=== PATIENT | male | born 1985 | race Caucasian/White ===

== ENCOUNTER 2024-06-17 07:42 | Observation (INO) | payer BC, SELFPAY ==
[2024-06-17] VITALS (9 sets, daily range): BP systolic 136–164; BP diastolic 74–99; PULSE 69–98; TEMP 36.3–36.9; O2SAT 93–98; BMI 34.5
--- NOTE | 2024-06-17 07:55 | CT_ITS ---
[address] [address] Patient Name: WILTON LR MRN: [id number] date: 1985 Sex: M Assigned Patient Location: ER Current Patient Location: Accession/Order Number: [id number] Exam Date: 06/17/2024 08:15 Report Date: 06/17/2024 09:47 At the request of: YANIRA DYER Procedure: CT angio UE RT EXAMINATION: CT angio UE RT HISTORY: swelling COMPARISON: No relevant comparison available. TECHNIQUE: After obtaining the patient's consent, CT images were obtained without and with non-ionic intravenous contrast material. Multi-planar reformatted/3-D images were created to optimize visualization of vascular anatomy. Dose reduction techniques were achieved by using automated exposure control and/or adjustment of mA and/or kV according to patient size and/or use of iterative reconstruction technique. FINDINGS: REGION: Right upper extremity ARTERIES: Normal appearance of the subclavian artery through distal radial and ulnar arteries. No significant obstruction or occlusion. OTHER: Mild lymphadenopathy and edema within right axilla. No appreciable abnormality of the musculature, subcutaneous fat, and bones of the right upper extremity. CT/CT angio UE RT IMPRESSION: 1. Normal CT angiography of the right upper extremity. No suspicious findings. 2. Mild right axilla lymphadenopathy/edema; nonspecific. Electronically authenticated by: HUNTER ROSE Date: 06/17/2024 09:47
--- NOTE | 2024-06-17 07:58 | ED_ITS ---
HPI HPI - General Adult General Chief complaint: Skin/Abscess/Foreign Body Stated complaint: LOCALIZED SWELLING Time Seen by Provider: 06/17/24 07:45 Source: patient Mode of arrival: walk-in History of Present Illness HPI narrative: Patient presents ED complaint of right arm swelling. He has noticed it on Saturday after his family reunion. He felt like maybe he got bit in his right wrist, there is a small adrien there. Over the past couple of days his arm has Become Progressively more swollen and tender. The swelling goes all the way up into the armpit and right chest wall on the lateral aspect. No fevers no nausea vomiting. He reports pain tingling and numbness. He does not know specifically if he was bit by something. He denies any injury to the area. No chest pain no shortness of breath.He said it started out as numb and tingly from the wrist to the elbow and outs progressed all the way up into the shoulder and lateral chest.Pain with palpation and pain with range of motion. Related Data Allergies Allergy/AdvReac Type Severity Reaction Status Date / Time No Known Drug Allergies Allergy Verified 06/17/24 07:50 Opioid HPI Opioid Management Most Recent Opioid Data: Last Pain Scale 4 06/17/24 09:30 Last ED Pain Assessment 06/17/24 09:30 Last MAR Pain Assessment 06/17/24 08:13 Review of Systems ROS Status of ROS 10 or more systems reviewed and unremark able except as noted in history and below Exam Narrative Exam Narrative: Time Seen: [] Vital Signs: [Per nurse's notes.] General: [Alert] Skin: [Warm, dry, no rash.] Head: [Normocephalic, atraumatic.] Neck: [Supple, trachea midline.] Eye: [Pupils are equal, round and reactive to light, extraocular movements are intact, normal conjunctiva.] Ears, nose, mouth and throat: oral mucosa moist. Cardiovascular: [Regular rate and rhythm, no murmur.] Respiratory: [Lungs are clear to auscultation, respirations are non-labored, breath sounds are equal.] Chest wall: [No tenderness, no deformity.] Gastrointestinal: [Soft, nontender, non distended, normal bowel sounds.] MSK: 5 out of 5 muscle strength x 4 extremities no calf pain or edema. Right arm exhibits diffuse swelling from hand up to shoulder including the armpit and Right lateral chest wall. Tenderness to palpation diffusely. No specific erythema but there is some dark coloration at the wrist which looks like may be bruising. Pain with range of motion and palpation in the entire arm and shoulder Lymphatics: [No lymphadenopathy.] Psychiatric: [Cooperative, appropriate mood & affect.] Neurological: [Alert and oriented to person, place, time, and situation, no focal neurological deficit observed.] Constitutional Vital Signs, click to edit/add: Last Vital Signs Temp 98.4 F 06/17/24 07:45 Pulse 74 06/17/24 10:56 Resp 18 06/17/24 10:56 BP 164/94 H 06/17/24 10:56 Pulse Ox 98 06/17/24 10:56 O2 Del Method Room Air 06/17/24 07:56 Course Vital Signs Vital signs: Vital Signs Temperature 98.4 F 06/17/24 07:45 Pulse Rate 71 06/17/24 07:45 Respiratory Rate 16 06/17/24 07:45 Blood Pressure 142/98 H 06/17/24 07:45 Pulse Oximetry 97 06/17/24 07:45 Oxygen Delivery Method Room Air 06/17/24 07:45 Temperature 98.4 F 06/17/24 07:45 Pulse Rate 74 06/17/24 10:56 Respiratory Rate 18 06/17/24 10:56 Blood Pressure 164/94 H 06/17/24 10:56 Pulse Oximetry 98 06/17/24 10:56 Oxygen Delivery Method Room Air 06/17/24 07:56 Medical Decision Making MDM Narrative Medical decision making narrative: Labs are nonacute. Imaging shows edema of the arm and axillary area with lymphadenopathy. I am thinking this is more of an allergic reaction type of issue but it is hard to completely rule out cellulitis or infection of the extremity. No arterial occlusion or compression. I spoke to Dr. Savage and he agrees with admission overnight IV antibiotics and steroids. Patient feels better slightly after the steroids here in ED but still has pain and swelling in the extremity diffusely. He is comfortable care plan for admission Differential Diagnosis Differential Diagnosis: Cellulitis, allergic reaction, arterial occlusion Lab Data Lab results reviewed: Yes I reviewed the patient's lab results Labs: Lab Results 06/17/24 Range/Units 08:05 WBC 7.2 (4.0-11.0) 10^3/uL RBC 4.77 (4.70-6.10) 10^6/uL Hgb 14.8 (14.0-18.0) g/dL Hct 42.8 (42.0-54.0) % MCV 89.7 (80.0-94.0) fL MCH 31.0 (25.9-34.0) pg MCHC 34.6 (29.9-35.2) g/dL RDW 12.1 (11.0-15.0) % Plt Count 217 (150-450) 10^3/uL MPV 10.2 (9.5-13.5) fL Neut % (Auto) 68.4 (43.0-75.0) % Lymph % (Auto) 22.7 (20.5-60.0) % [place] % (Auto) 6.2 (1.7-12.0) % Eos % (Auto) 1.8 (0.9-7.0) % Baso % (Auto) 0.6 (0.2-2.0) % Neut # (Auto) 4.9 (1.4-6.5) 10^3/uL Lymph # (Auto) 1.6 (1.2-3.8) 10^3/uL [place] # (Auto) 0.5 (0.3-0.8) 10^3/uL Eos # (Auto) 0.1 (0.0-0.7) 10^3/uL Baso # (Auto) 0.0 (0.0-0.1) 10^3/uL Abs Immat Gran (auto) 0.02 (0.00-0.03) 10^3/uL Imm/Tot Granulo (auto) 0.3 (0.0-0.5) % Sodium 140 (136-145) mmol/L Potassium 3.9 (3.5-5.1) mmol/L Chloride 102 (98-107) mmol/L Carbon Dioxide 29.0 (21.0-32.0) mmol/L Anion Gap 12.9 BUN 15.0 (7.0-18.0) mg/dL Creatinine 1.05 (0.70-1.30) mg/dL Est GFR ( Amer) >60 (>=60) Est GFR (Non-Af Amer) >60 (>=60) BUN/Creatinine Ratio 14.3 Glucose 125 H (74-106) mg/dL Lactate 1.4 (0.4-2.0) mmol/L Calcium 9.0 (8.5-10.1) mg/dL Total Bilirubin 0.7 (0.2-1.0) mg/dL AST 43 H (15-37) U/L ALT 85 H (16-63) U/L Alkaline Phosphatase 61 (46-116) U/L Total Protein 7.0 (6.4-8.2) g/dL Albumin 3.7 (3.4-5.0) g/dL Globulin 3.3 g/dL Albumin/Globulin Ratio 1.[address] scan - abdomen: Radiologist's impression: ITS Impressions Upper Extremity CTA 06/17/24 07:55 IMPRESSION: 1. Normal CT angiography of the right upper extremity. No suspicious findings. 2. Mild right axilla lymphadenopathy/edema; nonspecific. Electronically authenticated by: HUNTER ROSE Date: 06/17/2024 09:47 Discharge Plan Discharge Chief Complaint: Skin/Abscess/Foreign Body Clinical Impression: Cellulitis Patient Disposition: Admitted as Observation Time of Disposition Decision: 11:30 Condition: Fair Print Language: Mosotho Referrals: Physician,Non-Staff, [Physician] - 1 week
[2024-06-17] MEDS: KETOROLAC TROMETHAMINE 30 MG/ML VIAL IVP (08:13)
[2024-06-17] MEDS: DEXAMETHASONE SOD PHOS 10 MG/ML VIAL IV (08:13)
[2024-06-17 08:21] LABS: Basophils Percent Auto 0.6 % (0.2-2.0); Eosinophils Absolute Auto 0.1 10^3/uL (0.0-0.7); Eosinophils Percent Auto 1.8 % (0.9-7.0); Hematocrit 42.8 % (42.0-54.0); Hemoglobin 14.8 g/dL (14.0-18.0); Immature Granulocytes Abs Auto 0.02 10^3/uL (0.00-0.03); Immature Granulocytes Pct Auto 0.3 % (0.0-0.5); Lymphocytes Absolute Auto 1.6 10^3/uL (1.2-3.8); Lymphocytes Percent Auto 22.7 % (20.5-60.0); Mean Corpuscular HGB Conc 34.6 g/dL (29.9-35.2); Mean Corpuscular Volume 89.7 fL (80.0-94.0); Mean Platelet Volume 10.2 fL (9.5-13.5); Monocytes Absolute Auto 0.5 10^3/uL (0.3-0.8); Monocytes Percent Auto 6.2 % (1.7-12.0); Neutrophils Absolute Auto 4.9 10^3/uL (1.4-6.5); Neutrophils Percent Auto 68.4 % (43.0-75.0); Platelet Count 217 10^3/uL (150-450); Red Blood Count 4.77 10^6/uL (4.70-6.10); Red Cell Distribution Width 12.1 % (11.0-15.0); White Blood Count 7.2 10^3/uL (4.0-11.0)
[2024-06-17 08:36] LABS: Alanine Aminotransferase 85 U/L (16-63); Albumin Globulin Ratio 1.1; Albumin Level 3.7 g/dL (3.4-5.0); Alkaline Phosphatase 61 U/L (46-116); Anion Gap 12.9; Aspartate Amino Transferase 43 U/L (15-37); BUN Creatinine Ratio 14.3; Bilirubin Total 0.7 mg/dL (0.2-1.0); Chloride 102 mmol/L (98-107); Estimated GFR (African America >60 (>=60); Estimated GFR (Non-African Ame >60 (>=60); Globulin 3.3 g/dL; Glucose 125 mg/dL (74-106); Potassium 3.9 mmol/L (3.5-5.1); Sodium 140 mmol/L (136-145)
[2024-06-17 08:39] LABS: Lactate/Lactic Acid 1.4 mmol/L (0.4-2.0)
[2024-06-17] MEDS: VANCOMYCIN HCL 1,500 MG in 0.9 % SODIUM CHLORIDE 500 ML 250 MG IV ×2 (10:42→21:51)
--- NOTE | 2024-06-17 12:05 | P.HP_ITS ---
HPI H&P: HPI History of Present Illness Chief complaint: LOCALIZED SWELLING, R ARM CELLULITIS, EDEMA Narrative: Patient over the last several days has had increasing pain and swelling in his right upper extremity. Presented to the emergency room and found to have significant cellulitis with lymphangitis. Does have a break in the skin over his wrist with him some significant bruising and erythema. Consistent with likely spider bite. Workup in ER for CTA of the upper extremity and ultrasound the upper extremity did not show any arterial obstruction or venous thrombosis Opioid HPI Opioid Management Most Recent Pain and Opioid Data: Last Pain Scale 2 06/17/24 17:55 Last Pain Assessment 06/17/24 17:55 Last ED Pain Assessment 06/17/24 09:30 Last MAR Pain Assessment 06/17/24 08:13 Last ORT Total Score 1 06/17/24 13:09 Last ORT Risk Category Low Risk 06/17/24 13:09 Review of Systems ROS Status of ROS 10 or more systems reviewed and unremark able except as noted in history and below PFSH PFSH Social History Highest level of school completed/degree received: high school graduate Meds Home Medications and Allergies Home Medications ?Medication ?Instructions ?Recorded ?Confirmed ?Type omeprazole 40 mg capsule,delayed 40 mg PO .acb 06/17/24 06/17/24 History release Allergies Allergy/AdvReac Type Severity Reaction Status Date / Time No Known Drug Allergies Allergy Verified 06/17/24 07:50 Exam Constitutional Vital Signs, click to edit/add: Last Vital Signs Temp 98.4 F 06/17/24 07:45 Pulse 74 06/17/24 10:56 Resp 18 06/17/24 10:56 BP 164/94 H 06/17/24 10:56 Pulse Ox 98 06/17/24 10:56 O2 Del Method Room Air 06/17/24 07:56 Documenting provider has reviewed patient's vital signs: yes Common normals: no apparent distress Lymph Lymphatic: no lymphadenopathy noted Chest Common normals: inspection of chest normal Respiratory Common normals: normal respiratory effort and no retractions Cardio Common normals: regular rate and regular rhythm GI Common normals: Normal to inspection, nondistended, normoactive bowel sounds present Extremity Common normals: abnormal to inspection (Moderate swelling of right upper extremity with swelling up into the axilla) Other: Rubor, dolor, calor over anterior wrist right-sided Results Labs Labs: Short CBC 06/17/24 Range/Units 08:05 WBC 7.2 (4.0-11.0) 10^3/uL Hgb 14.8 (14.0-18.0) g/dL Hct 42.8 (42.0-54.0) % Plt Count 217 (150-450) 10^3/uL BMP 06/17/24 08:05 Sodium 140 Potassium 3.9 Chloride 102 Carbon Dioxide 29.0 BUN 15.0 Creatinine 1.05 Glucose 125 H Calcium 9.0 Liver Function 06/17/24 Range/Units 08:05 Total Bilirubin 0.7 (0.2-1.0) mg/dL AST 43 H (15-37) U/L ALT 85 H (16-63) U/L Alkaline Phosphatase 61 (46-116) U/L Albumin 3.7 (3.4-5.0) g/dL Assessment and Plan Assessment and Plan (1) Cellulitis: Plan Admission findings: Pain, swelling right upper extremity and area of insect bite with swelling up into the axilla. Consistent with cellulitis progressing to lymphangitis. With the speed with which this developed concern for continued progression with oral antibiotics will start patient on IV antibiotics Cellulitis right upper extremity-cellulitis progressed fairly rapidly, IV antibiotics. Blood cultures pending. Repeat labs in AM. Mild elevation in LFTs-repeat in a.m. GERD-continue with home medications Admission status: Patient admitted with cellulitis. Due to the speed with which is progressed, and blood cultures pending medically necessary treatment likely will span 2 midnights. Inpatient status.
[2024-06-17 12:37] LABS: Erythrocyte Sedimentation Rate 27 mm/hr (<=15)
[2024-06-17 13:15] LABS: C Reactive Protein 1.44 mg/dL (<=0.50)
--- NOTE | 2024-06-17 13:51 | US_ITS ---
[facility] [id number] Patient Name: WILTON LR MRN: [id number] date: 1985 Sex: M Assigned Patient Location: [place] Current Patient Location: [place] Accession/Order Number: [id number] Exam Date: 06/17/2024 15:55 Report Date: 06/17/2024 17:06 At the request of: JOSEPH SIMS Procedure: US venous doppler UE RT EXAM: US venous doppler UE RT HISTORY: edema. COMPARISON: None available. TECHNIQUE: Velazquez scale, Color Doppler, and spectral analysis were utilized to evaluate the right subclavian, axillary, brachial, cephalic, basilic, radial, and ulnar veins. Compression ultrasound was performed. FINDINGS: The noted vessels demonstrate normal color flow and spectral pattern with appropriate compression. No evidence of a deep venous thrombosis is seen. US/US venous doppler UE RT IMPRESSION: No sonographic evidence of deep venous thrombosis of the vessels imaged in the right upper extremity. Electronically authenticated by: PEGGY POLK Date: 06/17/2024 17:06
[2024-06-17] MEDS: PIPERACILLIN SODIUM/TAZOBACTAM 3.375 GM in 0.9 % SODIUM CHLORIDE 50 ML IV ×2 (14:30→21:06)
[2024-06-17] MEDS: 0.9 % SODIUM CHLORIDE 250 ML 10 ML IV (14:30)
[2024-06-18 04:00] VITALS: BP 150/90; PULSE 89; TEMP 36.6; O2SAT 92
[2024-06-18] MEDS: OMEPRAZOLE 40 MG CAPSULE.DR PO (05:37)
[2024-06-18] MEDS: PIPERACILLIN SODIUM/TAZOBACTAM 3.375 GM in 0.9 % SODIUM CHLORIDE 50 ML IV (05:37)
[2024-06-18 05:46] LABS: Basophils Percent Auto 0.2 % (0.2-2.0); Hematocrit 40.8 % (42.0-54.0); Hemoglobin 14.2 g/dL (14.0-18.0); Immature Granulocytes Abs Auto 0.04 10^3/uL (0.00-0.03); Immature Granulocytes Pct Auto 0.3 % (0.0-0.5); Lymphocytes Absolute Auto 1.5 10^3/uL (1.2-3.8); Lymphocytes Percent Auto 12.1 % (20.5-60.0); Mean Corpuscular HGB Conc 34.8 g/dL (29.9-35.2); Mean Corpuscular Hemoglobin 31.5 pg (25.9-34.0); Mean Corpuscular Volume 90.5 fL (80.0-94.0); Mean Platelet Volume 10.1 fL (9.5-13.5); Monocytes Absolute Auto 0.9 10^3/uL (0.3-0.8); Monocytes Percent Auto 7.3 % (1.7-12.0); Neutrophils Absolute Auto 9.9 10^3/uL (1.4-6.5); Neutrophils Percent Auto 80.1 % (43.0-75.0); Platelet Count 251 10^3/uL (150-450); Red Blood Count 4.51 10^6/uL (4.70-6.10); Red Cell Distribution Width 12.3 % (11.0-15.0); White Blood Count 12.4 10^3/uL (4.0-11.0)
[2024-06-18 05:52] LABS: Erythrocyte Sedimentation Rate 19 mm/hr (<=15)
[2024-06-18 05:59] LABS: Anion Gap 14.1; BUN Creatinine Ratio 13.9; C Reactive Protein 1.23 mg/dL (<=0.50); Calcium 8.7 mg/dL (8.5-10.1); Carbon Dioxide 24.9 mmol/L (21.0-32.0); Chloride 102 mmol/L (98-107); Estimated GFR (African America >60 (>=60); Estimated GFR (Non-African Ame >60 (>=60); Glucose 159 mg/dL (74-106); Sodium 137 mmol/L (136-145)
[2024-06-18 06:56] LABS: Alanine Aminotransferase 67 U/L (16-63); Albumin Level 3.3 g/dL (3.4-5.0); Alkaline Phosphatase 64 U/L (46-116); Aspartate Amino Transferase 21 U/L (15-37); Bilirubin Direct 0.1 mg/dL (0.0-0.2); Bilirubin Total 0.3 mg/dL (0.2-1.0); Globulin 3.2 g/dL; Total Protein 6.5 g/dL (6.4-8.2)
[2024-06-18 07:37] VITALS: BP 134/90; PULSE 70; TEMP 36.6; O2SAT 95
--- NOTE | 2024-06-18 07:51 | CM.NOTE ---
Rounds made with Dr. Savage, pt will discharge to home today. No discharge needs identified.
[2024-06-18] MEDS: VANCOMYCIN HCL 1,500 MG in 0.9 % SODIUM CHLORIDE 500 ML 250 MG IV (09:28)
--- NOTE | 2024-06-18 10:03 | P.DS_ITS ---
DS: Providers Provider Date of admission: 06/17/24 14:37 Primary care physician: SERG ZAYAS DS: Diagnosis Discharge Diagnosis (1) Cellulitis: Plan Admission findings: Pain, swelling right upper extremity and area of insect bite with swelling up into the axilla. Consistent with cellulitis progressing to lymphangitis. With the speed with which this developed concern for continued progression with oral antibiotics will start patient on IV antibiotics Cellulitis right upper extremity-cellulitis progressed fairly rapidly, improving at the time of discharge Mild elevation in LFTs-improving at the time of discharge GERD-continue with home medications Admission status: Patient admitted with cellulitis. Due to the speed with which is progressed, and blood cultures pending medically necessary treatment likely will span 2 midnights. Inpatient status. DS: Summary Hospital Course Hospital Course: Patient was seen and evaluated with increasing pain and swelling to his right upper extremity after sustaining a bite on his right wrist. CTA and ultrasound showed no circulation compromise. No thrombosis. Patient was admitted for IV antibiotics. His white blood cell count is higher but his arm is much improved today. CRP is also improved today. Liver function test elevated on admission improved today as well. Patient overall feels much better and he can move his full fingers now and has an improved contract recruiter strength. At this point with the improvement faster than expected, will discharge patient to home in improving condition. Medications to this. Follow-up with PCP within the next week. Time Spent with Patient Time attestation: Total time spent providing and/or coordinating discharge services: Exam Constitutional Vital Signs, click to edit/add: Last Vital Signs Temp 97.8 F 06/18/24 07:37 Pulse 70 06/18/24 07:37 Resp 14 06/18/24 07:37 BP 134/90 06/18/24 07:37 Pulse Ox 95 06/18/24 07:37 O2 Del Method Room Air 06/18/24 07:37 Documenting provider has reviewed patient's vital signs: yes Common normals: no apparent distress Lymph Lymphatic: no lymphadenopathy noted Chest Common normals: inspection of chest normal Respiratory Common normals: normal respiratory effort and no retractions Cardio Common normals: regular rate and regular rhythm GI Common normals: Normal to inspection, nondistended, normoactive bowel sounds present Extremity Common normals: abnormal to inspection (Mild swelling of the right upper extremity much improved from admission) Other: Rubor, dolor, calor over anterior wrist right-sided DS: Data Data Completed and Pending Labs on day of discharge: Labs from last 24 hours 06/18/24 06/17/24 05:20 08:05 WBC 12.4 H RBC 4.51 L Hgb 14.2 Hct 40.8 L MCV 90.5 MCH 31.5 MCHC 34.8 RDW 12.3 Plt Count 251 MPV 10.1 Neut % (Auto) 80.1 H Lymph % (Auto) 12.1 L [place] % (Auto) 7.3 Eos % (Auto) 0.0 L Baso % (Auto) 0.2 Neut # (Auto) 9.9 H Lymph # (Auto) 1.5 [place] # (Auto) 0.9 H Eos # (Auto) 0.0 Baso # (Auto) 0.0 Abs Immat Gran (auto) 0.04 H Imm/Tot Granulo (auto) 0.3 ESR 19 H 27 H Sodium 137 Potassium 4.0 Chloride 102 Carbon Dioxide 24.9 Anion Gap 14.1 BUN 14.0 Creatinine 1.01 Est GFR ( Amer) >60 Est GFR (Non-Af Amer) >60 BUN/Creatinine Ratio 13.9 Glucose 159 H Calcium 8.7 Total Bilirubin 0.3 Direct Bilirubin 0.1 AST 21 ALT 67 H Alkaline Phosphatase 64 C-Reactive Protein 1.23 H 1.44 H Total Protein 6.5 Albumin 3.3 L Globulin 3.2 Albumin/Globulin Ratio 1.0 Discharge Plan Discharge Disposition: Home, Self-Care Condition: Fair Discharge Medications: New amoxicillin-pot clavulanate 875-125 mg tablet 1 tab PO Q12H Qty: 20 0RF doxycycline monohydrate 100 mg capsule 100 mg PO BID 10 Days Qty: 20 0RF Continued omeprazole 40 mg capsule,delayed release(DR/EC) 40 mg PO .acb Print Language: Icelandic Patient Instructions: Doxycycline (By mouth), Amoxicillin/Clavulanate Potassium (By mouth) Forms: Portal Instructions Follow Up Appointments: Dr. Zayas's freelance director will contact the patient to schedule a hospital stay follow up appt. [phone]
[2024-06-18 11:10] VITALS: O2SAT 96
[2024-06-18 11:39] VITALS: BP 146/90; PULSE 76; TEMP 37.2; O2SAT 95
--- NOTE | 2024-06-19 13:54 | CM.DCFOLLOWU ---
Person spoke with:patient How are you feeling?well How is your pain?none Did you understand your discharge instructions?yes Do you have any questions about your discharge instructions?no Were you given any prescriptions at discharge?yes Were you able to get your prescriptions filled?yes Do you understand how to take your medications as ordered?yes Do you have any questions about your follow up appointment and do you plan to keep your follow up appointment?no questions, his PCP office called him and follow up was made Is there anything else that you would like to discuss? no Questions/Comments/Concerns/Other: none
== END 2024-06-18 11:58 | disposition home or self-care (01) ==
LOC: ER 11:30 → MS 13:06
PROVIDERS: Admitting Provider Family Medicine; Emergency Provider Emergency Medicine; Family Provider Family Medicine; PCP Family Medicine; Visit Provider Family Medicine
DX: L03.113 Cellulitis of right upper limb (principal); S40.861A Insect bite (nonvenomous) of right upper arm, initial encounter; W57.XXXA Bitten or stung by nonvenomous insect and other nonvenomous arthropods, initial encounter; R79.89 Other specified abnormal findings of blood chemistry; K21.9 Gastro-esophageal reflux disease without esophagitis; M79.89 Other specified soft tissue disorders
CPT/HCPCS: 36415; 73206; 80048; 80053; 80076; 83605; 85025; 85652; 86140; 87040; 93971; 94761; 96365; 96366; 96367; 96368; 96375; 99285; G0378; J1100; J1885; J2543; J3370; Q9967

== ENCOUNTER 2024-12-05 13:06 | Emergency (ER) | payer BC, SELFPAY ==
[2024-12-05 13:10] VITALS: BP 158/100; PULSE 103; TEMP 37.1; O2SAT 96; BMI 34.4
--- OUTSIDE RECORDS SUMMARY | 2024-12-05 13:11 | XMS_ITS | CCD ---
Author Organization [facility] Care Team Providers Care Automotive Sales Specialist Name Role Phone STRUS, ISAIAS Unavailable Unavailable STRUS, ISAIAS Unavailable Unavailable MISC, DOCTOR Unavailable Unavailable STRUS, ISAIAS Unavailable Unavailable TIMMIS, TRINA Unavailable Unavailable TIMMIS, TRINA Unavailable Unavailable TIMMIS, TRINA Unavailable Unavailable JESSICA COOK V Unavailable Unavailable KAPDOV PATEL Unavailable Unavailable TIMMIS, TRINA Unavailable Unavailable TIMMIS, TRINA Unavailable Unavailable TIMMIS, TRINA Unavailable Unavailable DOV GARCIA Unavailable Unavailable TIMMIS, TRINA Unavailable Unavailable TIMMIS, TRINA Unavailable Unavailable TIMMIS, TRINA Unavailable Unavailable DOV GARCIA Unavailable Unavailable Dov GARCIA Primary Care Physician Jose KONG Attending Unavailable Sherrell BAZAN Attending Unavailable Dov GARCIA Attending Unavailable Dov GARCIA Attending Unavailable Allergies Allergy Classification Reported Allergen(s) Allergy Type Date of Onset Reaction(s) Facility (1 source) omeprazole Drug Allergy RASH [facility] Repository Medications Current Medications Medication Drug Class(es) Dates Sig (Normalized) Sig (Original) fluticasone / vilanterol (2 sources) Corticosteroid, beta2-Adrenergic Agonist Start: 10-10-2023 take 1 puff(s) by inhalation once daily Breo Ellipta 100 mcg-25 mcg inhalation powder 1 puff(s), Inhalation, Daily, 28 blister(s), Refill(s) 2, 30 dose unit, [facility]/pharmacy #[id number], 178, cm, 07/12/22 13:55:00 EDT, Height/Length Dosing, 113.9, kg, 07/12/22 13:55:00 EDT, Weight Dosing Start Date: 10/10/23 Status: Ordered ibuprofen 800 mg oral tablet (2 sources) Nonsteroidal Anti-inflammatory Drug Start: 10-28-2023 take 1 tablet by mouth three times daily ibuprofen 800 mg Tab 800 mg = 1 tab(s), Oral, TID, # 100 tab(s), Refills(s) 3, Pharmacy: [facility]/pharmacy #[id number], 178, cm, 10/28/23 8:48:00 EST, Height/Length Dosing, 113.9, kg, 10/28/23 8:48:00 EST, Weight Dosing Start Date: 10/28/23 Status: Ordered methylPREDNISolone 4 mg oral tablet (1 source) Corticosteroid Start: 01-13-2024 Medrol Dosepack 4 mg Tab 4 mg = 1 packet(s), Oral, As Directed, as directed on package labeling, # 1 packet(s), Refills(s) 0, Pharmacy: [facility]/pharmacy #[id number], 178, cm, 10/28/23 8:48:00 EST, Height/Length Dosing, 113.9, kg, 10/28/23 8:48:00 EST, Weight Dosing Start Date: 01/13/24 Status: Ordered omeprazole 40 mg delayed release oral capsule (3 sources) Proton Pump Inhibitor Start: 10-30-2023 take 1 capsule by mouth once daily omeprazole 40 mg Cap-DR 40 mg = 1 cap(s), Oral, Daily, # 90 cap(s), Refills(s) 3, Pharmacy: [facility]/pharmacy #[id number], 178, cm, 10/28/23 8:48:00 EST, Height/Length Dosing, 113.9, kg, 10/28/23 8:48:00 EST, Weight Dosing Start Date: 10/30/23 Status: Ordered Start: 07-19-2022 take 1 capsule by [facility] once daily omeprazole 40 mg Cap-DR 40 mg = 1 cap(s), Oral, Daily, # 90 cap(s), Refills(s) 3, Pharmacy: [facility]/pharmacy #[id number], 178, cm, 07/12/22 13:55:00 EDT, Height/Length Dosing, 113.9, kg, 07/12/22 13:55:00 EDT, Weight Dosing Start Date: 07/19/22 Status: Ordered Start: 07-12-2022 take 1 capsule by [facility] once daily omeprazole 40 mg Cap-DR 40 mg = 1 cap(s), Oral, Daily, # 90 cap(s), Refills(s) 3, [id number], 178, cm, 07/12/22 13:55:00 EDT, Height/Length Dosing, 113.9, kg, 07/12/22 13:55:00 EDT, Weight Dosing Start Date: 07/12/22 Status: Ordered Completed/Discontinued Medications Medication Drug Class(es) Dates Sig (Normalized) Sig (Original) albuterol 0.83 mg/ml inhalation solution (3 sources) beta2-Adrenergic Agonist Start: 01-09-2021 take 100 doses by inhalation every four hours albuterol 0.083% Inh Letty 3 mL 0.083% - 3mL dosing units, Inhalation, q4hr Wheezing & cough, 100 EA, Refill(s) 5, [facility]/pharmacy #[id number], 175, cm, 01/07/21 16:45:00 EDT, Height/Length Dosing, 110, kg, 01/07/21 16:45:00 EDT, Weight Dosing Start Date: 01/09/21 Status: Ordered Albuterol (Eqv-ProAir HFA) 90 mcg/inh inhalation aerosol (2 sources) Start: 10-28-2023 take 1 dose by inhalation every four hours Albuterol (Eqv-ProAir HFA) 90 mcg/inh inhalation aerosol 2 puff(s), Inhalation, q4hr, 1 EA, Refill(s) 3, [facility]/pharmacy #[id number], 178, cm, 10/28/23 8:48:00 EST, Height/Length Dosing, 113.9, kg, 10/28/23 8:48:00 EST, Weight Dosing Start Date: 10/28/23 Status: Ordered Problems Active Problems Problem Classification Problem Date Documented Date Episodic/Chronic Asthma (5 sources) Mild intermittent asthma; Translations: [Asthma] Onset: 01-14-2024 01-23-2021 Chronic Esophageal disorders (12 sources) Gastro-esophageal reflux disease without esophagitis; Translations: [Gastroesophageal reflux disease without esophagitis] Onset: 11-15-2017 Chronic Essential hypertension (1 source) Essential (primary) hypertension; Translations: [ESSENTIAL PRIMARY HYPERTENSION] Onset: 11-19-2017 Chronic Osteoarthritis (3 sources) Localized, primary osteoarthritis of the shoulder region; Translations: [Primary osteoarthritis, right shoulder] Onset: 10-28-2023 Chronic Other liver diseases (2 sources) Enzyme level - finding; Translations: [Abnormal levels of other serum enzymes] Onset: 07-12-2022 Episodic Other liver diseases (3 sources) Elevated liver enzymes level 01-23-2021 Episodic Other lower respiratory disease (4 sources) Dyspnea; Translations: [Other forms of dyspnea] Onset: 07-12-2022 Episodic Other lower respiratory disease (4 sources) H/O: respiratory disease; Translations: [Personal history of other diseases of the respiratory system] Onset: 07-12-2022 Episodic Other lower respiratory disease (2 sources) Hypoxemia 01-12-2021 Episodic Other lower respiratory disease (3 sources) Orthopnea 07-12-2022 Episodic Other lower respiratory disease (3 sources) Snoring 06-25-2019 Episodic Other lower respiratory disease (3 sources) Wheezing; Translations: [Wheezing] Onset: 10-28-2023 Episodic Other non-traumatic joint disorders (1 source) Derangement of right shoulder joint 01-14-2024 Chronic Other non-traumatic joint disorders (1 source) Joint derangement; Translations: [Joint derangement, unspecified] Onset: 01-14-2024 Episodic Other nutritional; endocrine; and metabolic disorders (6 sources) Obesity; Translations: [Other obesity] Onset: 07-12-2022 Chronic Other nutritional; endocrine; and metabolic disorders (3 sources) Obese class II; Translations: [Body mass index (BMI) 35.0-35.9, adult] Onset: 07-12-2022 Chronic Other nutritional; endocrine; and metabolic disorders (3 sources) Body mass index 30+ - obesity 01-23-2021 Chronic Other screening for suspected conditions (not mental disorders or infectious disease) (1 source) Blood chemistry abnormal; Translations: [Other specified abnormal findings of blood chemistry] Onset: 07-12-2022 Episodic Other upper respiratory infections (4 sources) Chronic sinusitis, unspecified; Translations: [Chronic maxillary sinusitis] Onset: 05-23-2018 Chronic Residual codes; unclassified (6 sources) Obstructive sleep apnea syndrome Resolved: 06-25-2019 06-25-2019 Chronic Respiratory failure; insufficiency; arrest (adult) (3 sources) Acute hypoxemic respiratory failure 07-12-2022 Episodic Unclassified (4 sources) Obstructive sleep apnea (adult) (pediatric); Translations: [OBSTRUCTIVE SLEEP APNEA] Onset: 07-02-2018 Chronic Unclassified (4 sources) History of SARS-CoV-2; Translations: [Personal history of COVID-19] Onset: 07-12-2022 Unclassified (3 sources) Drug therapy finding 07-13-2020 Unclassified (10 sources) Patient encounter status 01-09-2021 Unclassified (3 sources) Protein level - finding 07-12-2022 Unclassified (2 sources) 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 07-25-2022 Viral infection (3 sources) Viral disease; Translations: [Viral infection, unspecified] Onset: 10-28-2023 Episodic Past or Other Problems Problem Classification Problem Date Documented Da te Episodic/Chronic Pneumonia (except that caused by tuberculosis or sexually transmitted disease) (3 sources) Pneumonia (except that caused by tuberculosis or sexually transmitted disease) 07-12-2022 Viral infection (4 sources) Disease caused by 2019-nCoV; Translations: [COVID-19] Onset: 10-28-2023 01-23-2021 Results Test Name Value Interpretation Reference Range Facility Registrationon 02-10-2024 Registration [id number] Normal [facility] Ambulatory Visit Summaryon 0 01-14-2024 Ambulatory Visit Summary WILTON ROMAN :1985 Visit Date:01/14/2024 Ambulatory Visit Instructions Your Diagnosis Derangement of right shoulder joint BMI 36.0-36.9,adult Other obesity Well adult health check Your Care Team Attending Physician - Dov GARCIA DO, FAAFP Primary Care Physician - Dov GARCIA DO, FAAFP This Is Your Medications List Contact prescribing physician if questions or concerns albuterol (Albuterol (Eqv-ProAir HFA) 90 mcg/inh inhalation aerosol) albuterol (albuterol 0.083% Inh Letty 3 mL) fluticasone-vilanterol (Breo Ellipta 100 mcg-25 mcg inhalation powder) ibuprofen (ibuprofen 800 mg Tab) methylPREDNISolone (Medrol Dosepack 4 mg Tab) omeprazole (omeprazole 40 mg Cap-DR) Procedures Performed right shoulder labral repair - 2004. Discharge Vitals Temperature (Oral) 36.7 ?C Heart Rate (Peripheral) 82 Respiratory Rate 18 Blood Pressure 120/80 Height 178 cm Height 70 in Weight 114.8 kg Weight 252.56 lb BMI 36.23 What to do next Someone Will Contact You Regarding These Appointments [facility] External Ambulatory Referral, Orthopaedics, 01/14/24 11:14:00 EDT, Derangement of right shoulder joint Medications What How Much When Why Instructions Unchanged albuterol (Albuterol (Eqv-ProAir HFA) 90 mcg/ inh inhalation aerosol) 2 Puffs Inhalation Every 4 hours Contact prescribing physician if questions or concerns Unchanged albuterol (albuterol 0.083% Inh Letty 3 mL) 0.083% - 3mL dosing units Inhalation Every 4 hours as needed for Wheezing & cough COVID-19 COVID-19 Contact prescribing physician if questions or concerns Unchanged fluticasone-vilanterol (Breo Ellipta 100 mcg-25 mcg inhalation powder) 1 Puffs Inhalation Every day COVID-19 Screening for diabetes mellitus Screening for lipid disorders Well adult exam Mild asthma exacerbation Post-COVID chronic dyspnea 30 dose unit Contact prescribing physician if questions or concerns Unchanged ibuprofen (ibuprofen 800 mg Tab) 1 Tablets By Mouth 3 times a day Osteoarthritis of right shoulder Contact prescribing physician if questions or concerns Unchanged methylPREDNISolone (Medrol Dosepack 4 mg Tab) 1 Packets By Mouth As Directed as directed on package labeling Contact prescribing physician if questions or concerns Unchanged omeprazole (omeprazole 40 mg Cap-DR) 1 Capsules By Mouth Every day Contact prescribing physician if questions or concerns Allergies No Known Allergies Problems Ongoing - Any problem that you are currently receiving treatment for. Derangement of right shoulder joint Dyspnea Elevated ferritin Elevated liver enzymes GERD (gastroesophageal reflux disease) H/O respiratory failure High risk medication use History of COVID-19 Mild asthma exacerbation Osteoarthritis of right shoulder Post-COVID chronic dyspnea Screening for diabetes mellitus Screening for lipid disorders Snoring Viral illness Well adult exam Well adult health check Wheezing Historical - Any problem that you are no longer receiving treatment for. Acute respiratory failure with hypoxemia Adult BMI 36.0-36.9 kg/sq m Class 2 severe obesity with serious comorbidity and body mass index (BMI) of 36.0 to 36.9 in adult COVID-19 GERD (gastroesophageal reflux disease) Orthopnea KIRSTIE (obstructive sleep apnea) KIRSTIE on CPAP Pneumonia due to COVID-19 virus Patient Survey You may receive a survey via text or e-mail asking about your office visit. Please share your experience with us by completing your survey. We appreciate your feedback and thank you for choosing us for your care. Elijah Rosas [facility] Medicine Office/Clini c Noteon 01-14-2024 Family Medicine Office/Clinic Note Chief Complaint Patient here for right shoulder pain History of Present Illness R shoulder surgery 2004 Dr Henson hurt it wrestling. He said could have surgery q 5 years way his joint is configured, I cannot understand why he said that. Approximately 3 weeks ago I started throwing baseball with my son and my arm and shoulder started to kill me. The pain went from the right shoulder all the way down to into the right lateral arm and sometimes into the forearm. Minimal in the computer and it hangs it kills me. I cannot get my arm up to the side anymore. Denies any weakness in the triceps or the bicep or with hand grasp but it just hurts so much more likely giveaway weakness. I hurt my shoulder back in high school wrestling. Motrin [id number] as directed sometimes helps, I am having trouble sleeping at night secondary to the pain and I do not want any narcotics I do not like the way they make me feel. Only time I had elevated liver enzymes was when I had COVID, they returned to normal. (I cannot find documentation where his enzymes returned to normal) Asthma under good control I have not needed to use my inhalers Here for follow up Have you had any ER visits or any hospitalizations since last visit? no Are you compliant with your medications and no difficulty affording your medications? yes Do you have side effects from the medication? no Are you compliant with your diet? yes Do you exercise? yes Do you have any of the following symptoms? Chest pain? no Palpitations? no ACEVES/SOB? no Orthopnea? no PND? no Edema? no Have you had any recent cardiopulmonary testing? no Review of Systems PHQ Score Initial Depression Screen Score: 0 SCORE ROS - Provider Constitutional: no fever, no chills, no sweats, no weakness. Skin: no Jaundice, no rash, no lesions, no petechiae. ENMT: no ear pain, no sore throat, no congestion, no hoarseness. Respiratory: no shortness of breath, no cough, no orthopnea, no wheezing. Cardiovascular: no chest pain, no palpitations, no edema. Gastrointestinal: no nausea, no vomiting, no diarrhea, no GI bleeding.no constipationnoheartburn Genitourinary: no dysuria, no hematuria, no discharge, no pain.nofreq/urgency Musculoskeletal: no back pain, no trauma.yesjoint pain Neurologic: no headache, no dizziness, no numbness, no weakness. Psychiatric: no sleeping problems, no irritability, no mood swings/depression. Heme/Lymph: no bleeding tendency, no bruising tendency, no petechiae, no swollen lymph nodes no Allergy/Imunology no seasonal allergies, no food allergies, no recurrent infections, no impaired immunity. Additional ROS info: Except as noted in the above Review of Systems and in the History of Present Illness all other systems have been reviewed and are negative or noncontributory. Physical Exam Vitals & Measurements T: 36.7 ?C(Oral) HR: 82(Peripheral) RR: 18 BP: 120/80 SpO2: 98% HT: 70 in HT: 178 cm WT: 114.8 kg WT: 252.56 lb BMI: 36.23 General: Well developed, well nourished, in no acute distress Mouth: Mucous membranes moist. Normal oropharynx, and posterior pharynx without lesions or exudates. Tongue normal Neck: Neck supple. No masses or palpable cervical nodes. Trachea midline. Thyroid without nodules, masses, tenderness, or enlargement Lungs: Normal respiratory effort and clear to auscultation Cardio: Regular rate and rhythm, normal S1 and S2, no murmur, no rub Abdomen: Soft, non-distended, non-tender. no G/R/S/Masses Musculoskeletal: Crepitus right shoulder greater than left. Patient can only raise right arm to approximately 70 degrees, he can will raise his left arm to 145 degrees. Bilateral hand grasp 5/5. Biceps and triceps are 5/5 . There is no increased warmth warmth nor effusion of the shoulder. Patient with significant pain with abduction of right arm greater than 70 degrees Extremity: No clubbing, cyanosis, edema, or deformity, with normal ROM in both upper and lower bilateral extremities Neurologic: Grossly normal Skin: No rashes, ulcerations, or suspicious lesions Mental Status: Alert and oriented x3. Normal mood and affect Assessment/Plan 1. Derangement of right shoulder joint (M24.9: Joint derangement, unspecified) Toradol 30 mg IM. No Motrin for 24 hours then may resume. Referral to [facility], he will stop to see if he get an appointment immediately after our appointment here today. Ordered: [facility] External Ambulatory Referral 2. BMI 36.0-36.9,adult (Z68.36: Body mass index [BMI] 36.0-36.9, adult) The standard range for ages 18 and older is >=18.5 and < 25 kg/m2. Your BMI today was above this range, this falls in the overweight to obese category and there are medical benefits to weight loss. We can offer counselling, referral, and/or medical support in addressing this problem. Your BMI and weight management will be followed at subsequent visits. 3. Other obesity (E66.8: Other obesity) Diet and exercise BMI goal of 25 4. Well sean (more content not included)... Normal [facility] Comment on above: Result Comment: Elec tronically Signed By: JOSE MELGAR FAAFP, Dov Reeder\.br\Date and Time Signed: 01/14/24 11:50 EDT Patient Educationon 01-14-20 Patient Education Orthopedics Shoulder Exercises Ask your health care provider which exercises are safe for you. Do exercises exactly as told by your health care provider and adjust them as directed. It is normal to feel mild stretching, pulling, tightness, or discomfort as you do these exercises. Stop right away if you feel sudden pain or your pain gets worse. Do not begin these exercises until told by your health care provider. Stretching exercises External rotation and abduction This exercise is sometimes called corner stretch. The exercise rotates your arm outward (external rotation) and moves your arm out from your body (abduction). 1. manager internet a doorway with one of your feet slightly in front of the other. This is called a staggered stance. If you cannot reach your forearms to the door frame, stand facing a corner of a room. 2. Choose one of the following positions as told by your health care provider: ? Place your hands and forearms on the door frame above your head. ? Place your hands and forearms on the door frame at the height of your head. ? Place your hands on the door frame at the height of your elbows. 3. Slowly move your weight onto your front foot until you feel a stretch across your chest and in the front of your shoulders. Keep your head and chest upright and keep your abdominal muscles tight. 4. Hold for seconds. 5. To release the stretch, shift your weight to your back foot. Repeat times. Complete this exercise times a day. Extension, standing 1. Stand and hold a broomstick, a cane, or a similar object behind your back. ? Your hands should be a little wider than shoulder-width apart. ? Your palms should face away from your back. 2. Keeping your elbows straight and your shoulder muscles relaxed, move the stick away from your body until you feel a stretch in your shoulders (extension). ? Avoid shrugging your shoulders while you move the stick. Keep your shoulder blades tucked down toward the middle of your back. 3. Hold for seconds. 4. Slowly return to the starting position. Repeat times. Complete this exercise times a day. [id number] exercises Pendulum 1. Stand near a wall or a surface that you can hold onto for balance. 2. Bend at the waist and let your left / right arm hang straight down. Use your other arm to support you. Keep your back straight and do not lock your knees. 3. Relax your left / right arm and shoulder muscles, and move your hips and your trunk so your left / right arm swings freely. Your arm should swing because of the motion of your body, not because you are using your arm or shoulder muscles. 4. Keep moving your hips and trunk so your arm swings in the following directions, as told by your health care provider: ? Side to side. ? Forward and backward. ? In clockwise and counterclockwise circles. 5. Continue each motion for seconds, or for as long as told by your health care provider. 6. Slowly return to the starting position. Repeat times. Complete this exercise times a day. Shoulder flexion, standing 1. Stand and hold a broomstick, a cane, or a similar object. Place your hands a little more than shoulder-width apart on the object. Your left / right hand should be palm-up, and your other hand should be palm-down. 2. Keep your elbow straight and your shoulder muscles relaxed. Push the stick up with your healthy arm to raise your left / right arm in front of your body, and then over your head until you feel a stretch in your shoulder (flexion). ? Avoid shrugging your shoulder while you raise your arm. Keep your shoulder blade tucked down toward the middle of your back. 3. Hold for seconds. 4. Slowly return to the starting position. Repeat times. Complete this exercise times a day. Shoulder abduction, standing 1. Stand and hold a broomstick, a cane, or a similar object. Place your hands a little more than shoulder-width apart on the object. Your left / right hand should be palm-up, and your other hand should be palm-down. 2. Keep your elbow straight and your shoulder muscles relaxed. Push the object across your body toward your left / right side. Raise your left / right arm to the side of your body (abduction) until you feel a stretch in your shoulder. ? Do not raise your arm above shoulder height unless your health care provider tells you to do that. ? If directed, raise your arm over your head. ? Avoid shrugging your shoulder while you raise your arm. Keep your shoulder blade tucked down toward the middle of your back. 3. Hold for seconds. 4. Slowly return to the starting position. Repeat times. Complete this exercise times a day. In (more content not included)... Normal [facility] Physician Referralon 024 Physician Referral [id number] Normal [facility] Family Medicine Office/Clini c Noteon 10-28-2023 Family Medicine Office/Clinic Note Chief Complaint Patient here for yearly check up. States he had Covid back in Sep. History of Present Illness Much better. Here for follow up Have you had any ER visits or any hospitalizations since last visit? no Are you compliant with your medications and no difficulty affording your medications? yes Do you have side effects from the medication? no Are you compliant with your diet? yes Do you exercise? yes Hand split wook x 6 hours yesterday by hand and carried it. Do you have any of the following symptoms? Chest pain? no Palpitations? no ACEVES/SOB? no Orthopnea? no PND? no Edema? no Have you had any recent cardiopulmonary testing? no Inhaler really helped when had presumed viral illness, tested positive for COVID just a few weeks ago, markedly improved. Also had COVID very bad little over a year ago. Albuterol metered-dose inhaler help the COVID more than anything. Patient denies any further wheezing or cough and is back to normal. Patient hand cut wood for 6 hours in the cold yesterday and carried it by hand with a few beers without any difficulty whatsoever. When he got COVID a few weeks ago he initially had chest pressure, completely now resolved without any exertional chest pain pressure nor shortness of breath Review of Systems PHQ Score Initial Depression Screen Score: 0 SCORE ROS - Provider Constitutional: no fever, no chills, no sweats, no weakness. Skin: no Jaundice, no rash, no lesions, no petechiae. ENMT: no ear pain, no sore throat, no congestion, no hoarseness. Respiratory: no shortness of breath, no cough, no orthopnea, no wheezing. Cardiovascular: no chest pain, no palpitations, no edema. Gastrointestinal: no nausea, no vomiting, no diarrhea, no GI bleeding.no constipationnoheartburn Genitourinary: no dysuria, no hematuria, no discharge, no pain.nofreq/urgency Musculoskeletal: no back pain, no trauma.nojoint pain Neurologic: no headache, no dizziness, no numbness, no weakness. Psychiatric: no sleeping problems, no irritability, no mood swings/depression. Heme/Lymph: no bleeding tendency, no bruising tendency, no petechiae, no swollen lymph nodes no Allergy/Imunology no seasonal allergies, no food allergies, no recurrent infections, no impaired immunity. Additional ROS info: Except as noted in the above Review of Systems and in the History of Present Illness all other systems have been reviewed and are negative or noncontributory. Physical Exam Vitals & Measurements T: 36.7 ?C(Oral) HR: 81(Peripheral) RR: 18 BP: 120/70 SpO2: 99% HT: 70 in HT: 178 cm WT: 113.9 kg WT: 250.58 lb BMI: 35.95 General: Well developed, well nourished, in no acute distress Mouth: Mucous membranes moist. Normal oropharynx, and posterior pharynx without lesions or exudates. Tongue normal Neck: Neck supple. No masses or palpable cervical nodes. Trachea midline. Thyroid without nodules, masses, tenderness, or enlargement Lungs: Normal respiratory effort and clear to auscultation Cardio: Regular rate and rhythm, normal S1 and S2, no murmur, no rub Abdomen: Soft, non-distended, non-tender. no G/R/S/Masses Musculoskeletal: No deformity or scoliosis noted. Normal range of motion. Joints normal. No erythema, edema, effusion, or ecchymosis Extremity: No clubbing, cyanosis, edema, or deformity, with normal ROM in both upper and lower bilateral extremities Neurologic: Grossly normal Skin: No rashes, ulcerations, or suspicious lesions Mental Status: Alert and oriented x3. Normal mood and affect Assessment/Plan 1. Wheezing (R06.2: Wheezing) resolved with Albuterol, intermittent, set up by COVID a few weeks ago. Albuterol helped for COVID more than anything 2. Viral illness (B34.9: Viral infection, unspecified) resolved: COVID a few weeks ago 3. BMI 35.0-35.9,adult (Z68.35: Body mass index [BMI] 35.0-35.9, adult) The standard range for ages 18 and older is >=18.5 and < 25 kg/m2. Your BMI today was above this range, this falls in the overweight to obese category and there are medical benefits to weight loss. We can offer counselling, referral, and/or medical support in addressing this problem. Your BMI and weight management will be followed at subsequent visits. 4. Other obesity (E66.8: Other obesity) diet and exercise 5. COVID (U07.1: COVID-19) resolved Ordered: Rapid COVID POC 52705 6. GERD (gastroesophageal reflux disease) (K21.9: Gastro-esophageal reflux disease without esophagitis) good control with 7. Osteoarthritis of right shoulder (M19.011: Primary osteoarthritis, right shoulder) As long as stomach is okay he may use ibuprofen 800 mg p.o. 3 times daily as needed. Use cautiously and sparingly Ordered: ibuprofen, 800 mg = 1 tab(s), Oral, TID, # 100 tab(s), Refills(s) 3, Pharmacy: [id number], 178, cm, 10/28/23 8:48:00 EST, Height/Length Dosing, 113.9, kg, 10/28/23 8:48:00 EST, Weight Dosing Orders: albuterol, 2 puff(s), Inhalation, q4hr, 1 EA, Refill(s) 3, CV (more content not included)... Normal [facility] Comment on above: Result Comment: Elec tronically Signed By: JOSE MELGAR FAAFP, Dov Reeder\.br\Date and Time Signed: 10/28/23 09:30 EST Patient Educationon 10-28-19 24 Patient Education ENT Cough, Adult A cough helps to clear your throat and lungs. A cough may be a sign of an illness or another medical condition. An acute cough may only last 2?3 weeks, while a chronic cough may last 8 or more weeks. Many things can cause a cough. They include: ? Germs (viruses or bacteria) that attack the airway. ? Breathing in things that bother (irritate) your lungs. ? Allergies. ? Asthma. ? Mucus that runs down the back of your throat (postnasal drip). ? Smoking. ? Acid backing up from the stomach into the tube that moves food from the mouth to the stomach (gastroesophageal reflux). ? Some medicines. ? Lung problems. ? Other medical conditions, such as heart failure or a blood clot in the lung (pulmonary embolism). Follow these instructions at home: Medicines ? Take suoa-rad-zxutjfc and prescription medicines only as told by your doctor. ? Talk with your doctor before you take medicines that stop a cough (cough suppressants). Lifestyle ? Do not smoke, and try not to be around smoke. Do not use any products that contain nicotine or tobacco, such as cigarettes, e-cigarettes, and chewing tobacco. If you need help quitting, ask your doctor. ? Drink enough fluid to keep your pee (urine) pale yellow. ? Avoid caffeine. ? Do not drink alcohol if your doctor tells you not to drink. General instructions ? Watch for any changes in your cough. Tell your doctor about them. ? Always cover your mouth when you cough. ? Stay away from things that make you cough, such as perfume, candles, campfire smoke, or cleaning products. ? If the air is dry, use a cool mist vaporizer or humidifier in your home. ? If your cough is worse at night, try using extra pillows to raise your head up higher while you sleep. ? Rest as needed. ? Keep all follow-up visits as told by your doctor. This is important. Contact a doctor if: ? You have new symptoms. ? You cough up pus. ? Your cough does not get better after 2?3 weeks, or your cough gets worse. ? Cough medicine does not help your cough and you are not sleeping well. ? You have pain that gets worse or pain that is not helped with medicine. ? You have a fever. ? You are losing weight and you do not know why. ? You have night sweats. Get help right away if: ? You cough up blood. ? You have trouble breathing. ? Your heartbeat is very fast. These symptoms may be an emergency. Do not wait to see if the symptoms will go away. Get medical help right away. Call your local emergency services (911 in the [place] Do not drive yourself to the hospital. Summary ? A cough helps to clear your throat and lungs. Many things can cause a cough. ? Take dela-fzq-ibjnrot and prescription medicines only as told by your doctor. ? Always cover your mouth when you cough. ? Contact a doctor if you have new symptoms or you have a cough that does not get better or gets worse. This information is not intended to replace advice given to you by your health care provider. Make sure you discuss any questions you have with your health care provider. Document Revised: 11/18/2020 Document Reviewed: 10/19/2019 [employer] Patient Education ? 2022 [employer]. [facility] Consenton 07-11-2023 Consent [id number]:127 Normal [facility] In office Testingon 07-11-20 23 In office Testing [id number]:127 Normal [facility] Registrationon 07-11-2023 Registration [id number]:127 Normal [facility] Arterial Blood Gason 021 ABG Base Excess -2.7 mmol/L Normal -3.0-3.0 [facility] Comment on above: Performed By: #### A BG #### Point of Care testing , ABG Frac Inspired O2 30 % [facility] Comment on above: Performed By: #### A BG #### Point of Care testing , ABG Liter Flow 2.5 [facility] Comment on above: Performed By: #### A BG #### Point of Care testing , ABG Oxygen Content 8.8 mmol/L Normal 6.6-9.7 [facility] Comment on above: Performed By: #### A BG #### Point of Care testing , ABG Oxygen Saturation 96.0 % Normal 95.0-100.0 [facility] Comment on above: Performed By: #### A BG #### Point of Care testing , ABG PCO2 34.5 mm[Hg] Low 35.0-45.0 [facility] Comment on above: Performed By: #### A BG #### Point of Care testing , ABG PH 7.41 Normal 7.35-7.45 [facility] Comment on above: Performed By: #### A BG #### Point of Care testing , ABG PO2 79.3 mm[Hg] Low 80.0-100.0 [facility] Comment on above: Performed By: #### A BG #### Point of Care testing , CO2 [Moles/Vol] 22.3 mmol/L Low 23.0-27.0 [facility] Comment on above: Performed By: #### A BG #### Point of Care testing , HCO3 (Bld) [Moles/Vol] 21.2 mmol/L Low 23.0-29.0 [facility] Comment on above: Performed By: #### A BG #### Point of Care testing , Respiratory Critical Normal [facility] Comment on above: Result Comment: Crit ical Value called on: 01/09/2021 at 13:32 PERFORMED BY: [place] [address] PATHOLOGIST HEALTHCARE TRANSLATOR RED MCCLELLAN M.D. Performed By: #### A BG #### Point of Care testing , VBG Draw Site Right Brachial Normal [facility] Comment on above: Performed By: #### A BG #### Point of Care testing , Basic Metabolic Panelon 12-13 Calcium [Mass/Vol] 8.0 mg/dL Low 8.2-10.2 [facility] Comment on above: Performed By: #### C RP, DDIMER, BMP #### [facility] [address] [place] [address] [place] Chloride [Moles/Vol] 104 mmol/L Normal 95-114 [facility] Comment on above: Performed By: #### C RP, DDIMER, BMP #### [facility] [address] [place] [address] [place] CO2 [Moles/Vol] 23.0 mmol/L Normal 22.0-30.0 [facility] Comment on above: Performed By: #### C RP, DDIMER, BMP #### [facility] [address] [place] [address] [place] Creatinine [Mass/Vol] 1.15 mg/dL Normal 0.64-1.27 [facility] Comment on above: Performed By: #### C RP, DDIMER, BMP #### [facility] [address] [place] [address] [place] Creatinine Clr Calc Pharmacy 112.94 Normal [facility] Comment on above: Performed By: #### C RP, DDIMER, BMP #### [facility] [address] [place] [address] [place] Estimated GFR ( Flores > 60 Normal [facility] Comment on above: Result Comment: GFR estimated reference range: According to KDOQI guidelines, <60 ml/min/1.73m2 is sufficient to diagnose a patient with chronic kidney disease. Performed By: #### C AUSTIN HARRISON, BMP #### [facility] [address] [place] [address] [place] Estimated GFR (Non- Am > 60 Normal [facility] Comment on above: Performed By: #### C AUSTIN HARRISON, BMP #### [address] Glucose [Mass/Vol] 110 mg/dL High 70-100 [facility] Comment on above: Result Comment: [place] om Glucose Reference Range is dependent on time and content of last meal. Glucose of more than 200 mg/dL in a nonstressed, ambulatory subject supports the diagnosis of Diabetes Mellitus. ADA recommended reference range Performed By: #### C AUSTIN HARRISON, BMP #### [address] Potassium [Moles/Vol] 3.5 mmol/L Normal 3.5-5.1 [facility] Comment on above: Performed By: #### C AUSTIN HARRISON, BMP #### [place] [address] [place] Sodium [Moles/Vol] 138 mmol/L Normal 136-146 [facility] Comment on above: Performed By: #### C AUSTIN HARRISON, BMP #### [place] [address] [place] Urea nitrogen [Mass/Vol] 10 mg/dL Normal 9-23 [facility] Comment on above: Performed By: #### C AUSTIN HARRISON, BMP #### [place] [address] [place] C-Reactive Proteinon 03-29-2 021 C-Reactive Protein 2.7 mg/dL High 0.0-1.0 [facility] Comment on above: Result Comment: PERF ORMED BY: [place] [address] PATHOLOGIST HEALTHCARE TRANSLATOR RED MCCLELLAN M.D. Performed By: #### C AUSTIN HARRISON BMP #### [address] Complete Blood Count Auto Di ffon 01-09-2021 Basophils (Bld) [#/Vol] 0.0 10*3/uL Normal 0.0-0.2 [facility] Comment on above: Result Comment: PERF ORMED BY: [place] [address] PATHOLOGIST HEALTHCARE TRANSLATOR RED MCCLELLAN M.D. Performed By: #### C BC #### [address] Basophils/100 WBC (Bld) 0.3 % Normal . [facility] Comment on above: Performed By: #### C BC #### [address] Eosinophils (Bld) [#/Vol] 0.0 10*3/uL Normal 0.0-0.45 [facility] Comment on above: Performed By: #### C BC #### [address] Eosinophils/100 WBC (Bld) 0.0 % Normal . [facility] Comment on above: Performed By: #### C BC #### [address] Erythrocyte distribution width (RBC) [Ratio] 12.9 % Normal 12.0-14.8 [facility] Comment on above: Performed By: #### C BC #### [address] Hematocrit (Bld) [Volume fraction] 41.6 % Normal 38.8-50.0 [facility] Comment on above: Performed By: #### C BC #### [address] Hemoglobin (Bld) [Mass/Vol] 14.3 g/dL Normal 13.0-17.0 [facility] Comment on above: Performed By: #### C BC #### [facility] [address] Lymphocytes (Bld) [#/Vol] 0.8 10*3/uL Low 1.00-4.8 [facility] Comment on above: Performed By: #### C BC #### [facility] [address] Lymphocytes/100 WBC (Bld) 24.9 % Normal . [facility] Comment on above: Performed By: #### C BC #### [facility] [address] MCH (RBC) [Entitic mass] 30.3 pg Normal 27.5-35.2 [facility] Comment on above: Performed By: #### C BC #### [address] MCV (RBC) [Entitic vol] 87.9 fL Normal 83.5-101 [facility] Comment on above: Performed By: #### C BC #### [facility] [address] Mean Corpuscular HGB Conc 34.4 g/dL Normal 32.5-35.6 [facility] Comment on above: Performed By: #### C BC #### [facility] [address] Monocytes (Bld) [#/Vol] 0.2 10*3/uL Normal 0.0-0.8 [facility] Comment on above: Performed By: #### C BC #### [facility] [address] [place] [address] [place] Monocytes/100 WBC (Bld) 6.7 % Normal . [facility] Comment on above: Performed By: #### C BC #### [facility] [address] Neutrophils (Bld) [#/Vol] 2.3 10*3/uL Normal 1.8-7.7 [facility] Comment on above: Performed By: #### C BC #### [facility] [address] Neutrophils/100 WBC (Bld) 68.1 % Normal . [facility] Comment on above: Performed By: #### C BC #### [facility] [address] [place] [address] [place] Nucleated RBC/100 WBC (Bld) [Ratio] 0.3 % Normal 0-0.5 [facility] Comment on above: Performed By: #### C BC #### [facility] [address] Platelet mean volume (Bld) [Entitic vol] 8.3 fL Normal 6.6-10.1 [facility] Comment on above: Performed By: #### C BC #### [address] Platelets (Bld) [#/Vol] 151 10*3/uL Normal 150-450 [facility] Comment on above: Performed By: #### C BC #### [address] RBC (Bld) [#/Vol] 4.73 10*6/uL Normal 3.90-5.60 [facility] Comment on above: Performed By: #### C BC #### [address] WBC (Bld) [#/Vol] 3.4 10*3/uL Low 4.5-11.0 [facility] Comment on above: Performed By: #### C BC #### [address] D-Dimer High Sensitivityon 0 01-09-2021 D-Dimer High Sensitivity < 200 Normal 0-243 [facility] Comment on above: Result Comment: The reference range for D-dimer is <243 ng/mL D-dimer units. D-dimer results must be used in conjunction with a clinical pretest probability (PTP) assessment model for deep vein thrombosis (DVT) and pulmonary embolism (PE). Results <230 ng/mL d-dimer units can be used as a negative predictor in patients with low or moderate probability for DVT/PE. Results above the exclusion threshold of 230 ng/ml D-dimer units for DVT/PE may indicate the need for further diagnostic testing. D-Dimer can be increased in hospitalized patients due to co-morbid conditions. PERFORMED BY: [place] [address] PATHOLOGIST HEALTHCARE TRANSLATOR RED MCCLELLAN M.D. Performed By: #### C HUNTER, AUSTIN, DANIELLE #### [address] ECG 12 lead ECGon 01-09-2021 ECG 12 lead ECG [facility] [place] [place] [address] Electrocardiograph Report Signed Patient: Wliton Roman MR#: [id number] : 1985 Acct:[id number] Age/Sex: 35 / M ADM Date: 01/09/21 Loc: ER Room: Type: [facility] ER Attending Dr: Ordering Provider: Loi Schwab MD Date of Service: 01/09/21 ECG/ECG 12 lead ECG: Shortness of Breath/Dyspnea Copies to: Test Reason : Blood Pressure : 134/083 mmHG Vent. Rate : 086 BPM Atrial Rate : 086 BPM P-R Int : 152 ms QRS Dur : 092 ms QT Int : 370 ms P-R-T Axes : 056 050 041 degrees QTc Int : 442 ms Normal sinus rhythm Normal ECG When compared with ECG of 23-SEP-2015 03:30, No significant change was found Confirmed by LOI SCHWAB MD ([id number]) on 01/09/2021 3:46:04 PM Referred By: Electronically Signed By:LOI SCHWAB MD Transcribed By: MUS Dictated By: Loi Schwab MD 01/09/21 1302 Signed By: 01/09/21 1546 Normal [facility] XR chest 1V portableon 01-09 XR chest 1V portable [facility] [place] [address] XRay Report Signed Patient: Wilton Roman MR#: [id number] : 1985 Acct:[id number] Age/Sex: 35 / M ADM Date: 01/09/21 Loc: ER Room: Type: [facility] ER Attending Dr: Ordering Provider: Loi Schwab MD Date of Service: 01/09/21 XR/XR chest 1V portable: DYSPNEA Copies to: Loi Schwab MD PORTABLE CHEST(1338 hours): CLINICAL HISTORY: Body aches, weakness, shortness of breath, chest and abdominal pain. Nonproductive cough and low-grade fever for 6 days. COVID positive. COMPARISON: 09/24/2015 FINDINGS: A single AP portable view of the chest was obtained in erect position with poor inspiration. The transverse diameter of the cardiopericardial silhouette is unremarkable without pulmonary congestion or pneumothorax. There is no acute infiltrate or pleural effusion. Electrocardiographic leads and external defibrillator are overlying the chest wall. The bony structures are intact. XR/XR chest 1V portable IMPRESSION: NO ACUTE INFILTRATE OR PULMONARY CONGESTION. Impression dictated by: Brandin Baker M.D.01/09/2021 2:09 PM Dictation Location: [place] [address] Transcribed By: [facility] 01/09/21 1409 Dictated By: Brandin Baker MD 01/09/21 1406 Signed By: 01/09/21 [address] [facility] [address] SINUSES WO CONon 05-23-[address] SINUSES WO CON [address] [place] [address] Patient: WILTON ROMAN Exam Date: 05/23/2018DOB: 1985 Gender:M : DR TRINA HELMS M.D. Admission #: [id number] : Order #: [id number] HERE TO VIEW EXAM RADIOLOGY REPORT PROCEDURE: CT SINUSES WITHOUT CONTRAST COMPARISON: None. INDICATIONS: Chronic sinusitis TECHNIQUE: Axial and Coronal CT images were created without IV contrast. DOSE: 327mGycm FINDINGS: MAXILLARY SINUSES: Bilateral peripheral soft tissue attenuation, 2 mm on the right, 9 mm on the left. Infundibula are patent. No significant anomalous inferior orbital ethmoid (Gilbert) air cells. ETHMOID SINUSES: No significant mucosal thickening or fluid. Fovea ethmoidali and lamina papyracea are symmetric and intact. SPHENOID SINUSES: No significant mucosal thickening or fluid. Sphenoethmoidal recesses are patent. No bony dehiscence. FRONTAL SINUSES: No significant mucosal thickening or fluid. Frontal recesses are patent.NASAL FOSSA: 2 mm rightward deviation of the mid nasal septum. No kandy bullosa or paradoxical turbinates are identified. OTHER: Negative. Limited views of the skull base and orbits are unremarkable. CONCLUSION: 1. Mild bilateral maxillary sinus disease Dictated by: Jessica Cook M.D. on 05/23/2018 at 09:34 Approved by: Jessica Cook M.D. on 05/23/2018 at 09:38 Normal [facility] AMYLASEon 11-15-2017 Amylase enzyme act/vol 55 U/L Normal 31-110 [facility] Comment on above: Performed By: #### C MP, LIPA, CHIKI, CMADM ####[facility] W[address]ult[address] CARDIAC TYLER ADMITon 018 CK enzyme act/vol 176 U/L Critically high 55-170 Th [facility] Comment on above: Performed By: #### C MP, LIPA, CHIKI, CMADM ####[facility] W[address]pbi[address] CK.MB mass conc 1.99 ng/mL Normal <=2.37 [facility] Comment on above: Performed By: #### C MP, LIPA, CHIKI, CMADM ####[facility] Yojcxjugpq9338 [address] INR Coag RelTime (Bld) SEE BELOW Normal [facility] Comment on above: Result Comment: <0.0 34 ng/ml NEGATIVE 0.034-0.119 INDETERMINATE 0.120 AMI CUT OFF Performed By: #### C MP, LIPA, CHIKI, CMADM ####[facility] Z[address]kot[address] RAIZA 36.8 ng/mL Normal <=121.0 [facility] Comment on above: Performed By: #### C MP, LIPA, CHIKI, CMADM ####[facility] K[address]lt[address] [place] TROP <0.012 Normal <=0.034 [facility] Comment on above: Performed By: #### C YJOTI, KEELY, CHIKI, CMADM ####[facility] [address] [place] [id number] CBC AUTO DIFFon 11-15-2017 Basophils Auto #/vol (Bld) 0.1 103/ul Normal 0.0-0.1 [facility] Comment on above: Performed By: #### C BC ####[facility] [address] [place], [place] [address]Gerken [place] Basophils/100 WBC Auto (Bld) 1.0 % Normal 0.2-2.0 [facility] Comment on above: Performed By: #### C BC ####[facility] [address] [place] [address] [place] Eosinophils Auto #/vol (Bld) 0.1 103/ul Normal 0.0-0.7 [facility] Comment on above: Performed By: #### C BC ####[facility] [address] [place] [address] [place] Eosinophils/100 WBC Auto (Bld) 1.2 % Normal 0.9-7.0 [facility] Comment on above: Performed By: #### C BC ####[facility] [address] [place] [address] [place] Erythrocyte distribution width Auto Ratio (RBC) 12.3 % Normal 11.0-15.0 [facility] Comment on above: Performed By: #### C BC ####[facility] [address] [place] [address] [place] Hematocrit Auto Volume Fraction (Bld) 41.4 % Critically low 42.0-54.0 [facility] Comment on above: Performed By: #### C BC ####[facility] [address] [place], [place] [address]ken [place] Hemoglobin mass conc (Bld) 14.3 g/dL Normal 14.0-18.0 [facility] Comment on above: Performed By: #### C BC ####[facility] [address] [place] [id number] IG # 0.02 10e3/ul Normal 0.00-0.03 [facility] Comment on above: Performed By: #### C BC ####[facility] [address] [place], [place] [address]ken [place] IG % 0.3 % Normal 0.0-0.5 [facility] Comment on above: Performed By: #### C BC ####[facility] [address] [place], [place] [address] Lymphocytes Auto #/vol (Bld) 2.5 103/ul Normal 1.2-3.8 [facility] Comment on above: Performed By: #### C BC ####[facility] [address] [place] [address] [place] Lymphocytes/100 WBC Auto (Bld) 42.5 % Normal 20.5-60.0 [facility] Comment on above: Performed By: #### C BC ####[facility] [address] [place] [address] [place] MANUAL DIFF REQ NO Normal [facility] Comment on above: Performed By: #### C BC ####[facility] [address] [place], [place] [address] MCH Auto Entitic mass (RBC) 30.1 pg Normal 25.9-34.0 [facility] Comment on above: Performed By: #### C BC ####[facility] [address] [place] [address] [place] MCHC Auto mass conc (RBC) 34.5 g/dL Normal 29.9-35.2 [facility] Comment on above: Performed By: #### C BC ####[facility] [address] [place] [address] [place] MCV Auto Entitic volume (RBC) 87.2 fL Normal 80.0-94.0 [facility] Comment on above: Performed By: #### C BC ####[facility] [address] [place], [place] [address]Rjzcte [place] Monocytes Auto #/vol (Bld) 0.5 103/ul Normal 0.3-0.8 [facility] Comment on above: Performed By: #### C BC ####[facility] [address] [place] [address] [id number] [place] Monocytes/100 WBC Auto (Bld) 8.0 % Normal 1.7-12.0 [facility] Comment on above: Performed By: #### C BC ####[facility] [address] [place] [address] 225[address]Qfzmkp [place] Neutrophils Auto #/vol (Bld) 2.8 103/ul Normal 1.4-6.5 [facility] Comment on above: Performed By: #### C BC ####[facility] [address] [place] [address] [id number] [place] Neutrophils/100 WBC Auto (Bld) 47.0 % Normal 43.0-75.0 [facility] Comment on above: Performed By: #### C BC ####[facility] [address] [place] [id number] [place] Platelet mean volume Auto Entitic volume (Bld) 9.9 fL Normal 9.5-13.5 [facility] Comment on above: Performed By: #### C BC ####[facility] [address] [place] [address] [id number] [place] Platelets Auto #/vol (Bld) 240 103/ul Normal 150-450 [facility] Comment on above: Performed By: #### C BC ####[facility] [address] [place] [id number] [place] RBC Auto #/vol (Bld) 4.75 106/ul Normal 4.70-6.10 [facility] Comment on above: Performed By: #### C BC ####[facility] [address] [place] [address] [id number] [place] WBC Auto #/vol (Bld) 5.9 103/ul Normal 4.0-11.0 [facility] Comment on above: Performed By: #### C BC ####[facility] Jzuqcgqojp6[address] [place] H PYLORI ANTIBODYon 11-15-19 18 H PYLORI Negative Normal NEGATIVE [facility] Comment on above: Performed By: #### H PYL ####[facility] Izavcemxoy5852 [address] [place] LIPASEon 11-15-2017 Lipase enzyme act/vol 128.0 U/L Normal 23.0-300.0 [facility] Comment on above: Performed By: #### C MP, LIPA, CHIKI, CMADM ####[facility] Sxawxoquxk7746 [address] [place] PROF 14(COMP METB)on 018 Albumin mass conc 4.3 g/dL Normal 3.5-5.0 [facility] Comment on above: Performed By: #### C MP, LIPA, CHIKI, CMADM ####[facility] [address] [place] [address] [place] Albumin/Globulin mass ratio 1.6 {ratio} Normal [facility] Comment on above: Performed By: #### C MP, LIPA, CHIKI, CMADM ####[facility] [address] [place] [address] [place] ALP enzyme act/vol 75 U/L Normal 38-126 [facility] Comment on above: Performed By: #### C MP, LIPA, CHIKI, CMADM ####[facility] Emnfihzlol7322 [address] [place] ALT enzyme act/vol 115 U/L Critically high 21-72 [facility] Comment on above: Performed By: #### C MP, LIPA, CHIKI, CMADM ####[facility] Vgwqtfufmv3390 [address] [place] Anion gap 3 molar conc 13.0 mmol/L Normal [facility] Comment on above: Performed By: #### C MP, LIPA, CHIKI, CMADM ####[facility] Vsmfuwljfj2940 [address] [place] AST enzyme act/vol 46 U/L Normal 17-59 [facility] Comment on above: Performed By: #### C JYOTI, KEELY, CHIKI, CMADM ####[facility] Apkbcdmmed1280 [address] [place] Bilirubin Ql (U) 0.3 mg/dL Normal 0.2-1.[address] [facility] Comment on above: Performed By: #### C JYOTI, LIPA, CHIKI, CMADM ####[facility] Fvjsgyxsjt7458 [address] [place] Calcium mass conc 9.5 mg/dL Normal 8.4-10.2 [facility] Comment on above: Performed By: #### C JYOTI, KEELY, CHIKI, CMADM ####[facility] Xjbacqh[address]q1016 [address] [place] Chloride molar conc 109 mmol/L Critically high 98-107 [facility] Comment on above: Performed By: #### C JYOTI, LIPA, CHIKI, CMADM ####[facility] Knbfrhwilf0360 [address] [place] CO2 molar conc 28.0 mmol/L Normal 22.0-30.0 [facility] Comment on above: Performed By: #### C JYOTI, LIPA, CHIKI, CMADM ####[facility] Vqdvapmess7645 [address] [place] Creatinine mass conc 0.99 mg/dL Normal 0.66-1.25 [facility] Comment on above: Performed By: #### C MP, LIPA, CHIKI, CMADM ####[facility] Icgeqpsjez0552 [address] [place] EGFR-AF GERMAN >60 Normal >=[address] [facility] Comment on above: Performed By: #### C MP, LIPA, CHIKI, CMADM ####[facility] Wicoobenbt9096 [address] [place] EGFR-NON AF GERMAN >60 Normal >=60 [facility] Comment on above: Performed By: #### C JYOTI, ENDYA, CHIKI, CMADM ####[facility] Sutjotfeaa7928 [address] [place] Globulin Calculated mass conc (S) 2.8 g/dL Normal [facility] Comment on above: Performed By: #### C MP, LIPA, CHIKI, CMADM ####[facility] Blsmbcxwkg2565 [address] [place] Glucose mass conc 114 mg/dL Critically high 74-106 Th [facility] Comment on above: Performed By: #### C MP, LIPA, CHIKI, CMADM ####[facility] Acmcwmikmo6116 [address] [place] Potassium molar conc 3.8 mmol/L Normal 3.4-5.0 [facility] Comment on above: Performed By: #### C MP, LIPA, CHIKI, CMADM ####[facility] Xkfricixby0764 [address] [place] Protein mass conc 7.1 g/dL Normal 6.1-8.2 [facility] Comment on above: Performed By: #### C MP, LIPA, CHIKI, CMADM ####[facility] Gwfjefirxs5083 [address] [place] Sodium molar conc 146 mmol/L Critically high 137-145 Th [facility] Comment on above: Performed By: #### C MP, LIPA, CHIKI, CMADM ####[facility] Ukgqetbwly8405 [address] [place] Urea nitrogen mass conc 17.0 mg/dL Normal 9.0-20.0 [facility] Comment on above: Performed By: #### C MP, LIPA, CHIKI, CMADM ####[facility] Wmwebm[address]laa[address] [place] Urea nitrogen/Creatinin e mass ratio 16.8 mg/mg Normal [facility] Comment on above: Performed By: #### C MP, LIPA, CHIKI, CMADM ####[facility] Eknebrvsrj9714 [address] Vital Signs Date Time Vital Sign Value Performing Clinician Faci lity 01-14-2024 10:42-0400 Blood Pressure Location Dov KAPLE [facility] 01-14-2024 10:42-0400 Body temperature 98.06 [degF] Dov KAPLE [facility] 01-14-2024 10:42-0400 Diastolic blood pressure 80 mm[Hg] Dov KAPLE [facility] 01-14-2024 10:42-0400 Heart rate 82 /min Dov KAPLE [facility] 01-14-2024 10:42-0400 Respiratory rate 18 /min Dov KAPLE [facility] 01-14-2024 10:42-0400 SaO2% (BldA) [Mass fraction] 98 % Dov KAPLE [facility] 01-14-2024 10:42-0400 Systolic blood pressure 120 mm[Hg] Dov KAPLE [facility] 10-28-2023 08:42-0500 Blood Pressure Location Dov KAPLE [facility] 10-28-2023 08:42-0500 Body temperature 98.06 [degF] Dov KAPLE [facility] 10-28-2023 08:42-0500 Diastolic blood pressure 70 mm[Hg] Dov KAPLE [facility] 10-28-2023 08:42-0500 Heart rate 81 /min Dov KAPLE [facility] 10-28-2023 08:42-0500 Respiratory rate 18 /min Dov KAPLE [facility] 10-28-2023 08:42-0500 SaO2% (BldA) [Mass fraction] 99 % Dov KAPLE [facility] 10-28-2023 08:42-0500 Systolic blood pressure 120 mm[Hg] Dov KAPLE [facility] 07-12-2022 13:48-0400 Blood Pressure Location Dov KAPLE [facility] 07-12-2022 13:48-0400 Body temperature 98.06 [degF] Dov KAPLE [facility] 07-12-2022 13:48-0400 Diastolic blood pressure 82 mm[Hg] Dov KAPLE [facility] 07-12-2022 13:48-0400 Heart rate 68 /min Dov KAPLE [facility] 07-12-2022 13:48-0400 Respiratory rate 18 /min Dov KAPLE [facility] 07-12-2022 13:48-0400 SaO2% (BldA) [Mass fraction] 98 % Odv KAPLE [facility] 07-12-2022 13:48-0400 Systolic blood pressure 132 mm[Hg] Dov KAPLE [facility] Encounters Encounter Date Encounter Type Care Provider Facility Start: 06-19-2024 End: 06-19-2024 ambulatory [facility] Facility:CD:[id number] Start: 02-10-2024 End: 02-10-2024 ambulatory [facility] Facility:[facility] Start: 01-14-2024 End: 01-14-2024 ambulatory Dov GARCIA Facility:[facility] Start: 01-14-2024 End: 01-14-2024 Patient encounter procedure Dov GARCIA [facility] Start: 01-14-2024 End: 01-14-2024 Well adult monitoring check done Dov GARCIA [facility] Start: 10-28-2023 End: 10-28-2023 ambulatory Dov GARCIA Facility:[facility] Start: 10-28-2023 End: 10-28-2023 Patient encounter procedure Dov GARCIA [facility] Start: 07-11-2023 End: 07-11-2023 ambulatory Sherrell BAZAN Facility:[facility] Start: 07-12-2022 End: 07-12-2022 Patient encounter procedure Dov GARCIA [facility] Start: 07-12-2022 End: 07-12-2022 Well adult monitoring check done Dov GARCIA [facility] Start: 07-02-2018 End: 07-03-2018 Patient encounter TRINA HELMS Facility:[facility] Start: 06-17-2018 End: 06-18-2018 Patient encounter TRINA HELMS Facility:[facility] Start: 05-23-2018 End: 05-24-2018 Patient encounter TRINA HELMS Facility:[facility] Start: 11-15-2017 End: 11-15-2017 Patient encounter ISAIAS ALMODOVAR Facility:[facility] Procedures Date Procedure Procedure Detail Performing Clinician right shoulder sofia l repair - 2004 1 oDv GARCIA Comment on above: Dr Henson Immunizations Immunization Date Immunization Notes Care Provider Cali finn NEGATED: Highlighted row has not occurred!10-28-2023 influenza virus vaccine, unspecified formulation Dov GARCIA [facility] NEGATED: Highlighted row has not occurred!07-12-2022 influenza virus vaccine, unspecified formulation Dov GARCIA [facility] Payers Date Payer Category Payer Unknown [id number] 1987 Unknown [id number] 2.16.84 [id number] 1987 Unknown [id number] 2.16.84 [id number] 1987 Unknown [id number] 2.16.84 [id number] 1987 Unknown [id number] 2.16.84 [id number] 1987 Unknown [id number] 2.16.8 [id number] 1987 Unknown [id number] 2.16.8 [id number] 1959 Unknown [id number] 1957 Unknown [id number] Social History Date Type Detail Facility Start: 01-23-2021 End: 01-14-2024 Tobacco smoking status Never smoked tobacco (finding) [facility] Tobacco smoking status Never [facility] Sex Assigned At Male [facility] Functional Status Date Assessment Result Facility 01-14-2024 Functional Status N/A [facility] 10-28-2023 Functional Status N/A [facility] 07-12-2022 Functional Status N/A [facility] Evaluation + Plan note 01-14-2024 Laboratory Note Date & Type Note Facility 01-14-2024 Evaluation + Plan note Future Scheduled TestsBasic Metabolic Panel 01/14/24CBC w/ Auto Diff 2epatic Function Panel 01/14/24Lipid Panel 01/14/24 [facility] Hospital Discharge instructions 01-14-2024 Note Date & Type Note Facility 01-14-2024 Hospital Discharg e instructions Patient Education 01/14/2024 11:49:45 Shoulder Exercises Shoulder Exercises Ask your health care provider which exercises are safe for you. Do exercises exactly as told by your health care provider and adjust them as directed. It is normal to feel mild stretching, pulling, tightness, or discomfort as you do these exercises. Stop right away if you feel sudden pain or your pain gets worse. Do not begin these exercises until told by your health care provider. Stretching exercises External rotation and abduction This exercise is sometimes called corner stretch. The exercise rotates your arm outward (external rotation) and moves your arm out from your body (abduction). 1.manager internet a doorway with one of your feet slightly in front of the other. This is called a staggered stance. If you cannot reach your forearms to the door frame, stand facing a corner of a room. 2.Choose one of the following positions as told by your health care provider: Place your hands and forearms on the door frame above your head. Place your hands and forearms on the door frame at the height of your head. Place your hands on the door frame at the height of your elbows. 3.Slowly move your weight onto your front foot until you feel a stretch across your chest and in the front of your shoulders. Keep your head and chest upright and keep your abdominal muscles tight. 4.Hold for seconds. 5.To release the stretch, shift your weight to your back foot. Repeat times. Complete this exercise times a day. Extension, standing 1.Stand and hold a broomstick, a cane, or a similar object behind your back. Your hands should be a little wider than shoulder-width apart. Your palms should face away from your back. 2.Keeping your elbows straight and your shoulder muscles relaxed, move the stick away from your body until you feel a stretch in your shoulders (extension). Avoid shrugging your shoulders while you move the stick. Keep your shoulder blades tucked down toward the middle of your back. 3.Hold for seconds. 4.Slowly return to the starting position. Repeat times. Complete this exercise times a day. Rocwn-fd-thsztt exercises Pendulum 1.Stand near a wall or a surface that you can hold onto for balance. 2.Bend at the waist and let your left / right arm hang straight down. Use your other arm to support you. Keep your back straight and do not lock your knees. 3.Relax your left / right arm and shoulder muscles, and move your hips and your trunk so your left / right arm swings freely. Your arm should swing because of the motion of your body, not because you are using your arm or shoulder muscles. 4.Keep moving your hips and trunk so your arm swings in the following directions, as told by your health care provider: Side to side. Forward and backward. In clockwise and counterclockwise circles. 5.Continue each motion for seconds, or for as long as told by your health care provider. 6.Slowly return to the starting position. Repeat times. Complete this exercise times a day. Shoulder flexion, standing 1.Stand and hold a broomstick, a cane, or a similar object. Place your hands a little more than shoulder-width apart on the object. Your left / right hand should be palm-up, and your other hand should be palm-down. 2.Keep your elbow straight and your shoulder muscles relaxed. Push the stick up with your healthy arm to raise your left / right arm in front of your body, and then over your head until you feel a stretch in your shoulder (flexion). Avoid shrugging your shoulder while you raise your arm. Keep your shoulder blade tucked down toward the middle of your back. 3.Hold for seconds. 4.Slowly return to the starting position. Repeat times. Complete this exercise times a day. Shoulder abduction, standing 1.Stand and hold a broomstick, a cane, or a similar object. Place your hands a little more than shoulder-width apart on the object. Your left / right hand should be palm-up, and your other hand should be palm-down. 2.Keep your elbow straight and your shoulder muscles relaxed. Push the object across your body toward your left / right side. Raise your left / right arm to the side of your body (abduction) until you feel a stretch in your shoulder. Do not raise your arm above shoulder height unless your health care provider tells you to do that. If directed, raise your arm over your head. Avoid shrugging your shoulder while you raise your arm. Keep your shoulder blade tucked down toward the middle of your back. 3.Hold for seconds. 4.Slowly return to the starting position. Repeat times. Complete this exercise times a day. Internal rotation 1.Place your left / right hand behind your back, palm-up. 2.Use your other hand to dangle an exercise band, a broomstick, or a similar object over your shoulder. Grasp the band with your left / right hand so you are holding on to both ends. 3.Gently pull up on the band until you feel a stretch in the front of your left / right shoulder. The movement of your arm toward the center of your body is called internal rotation. Avoid shrugging your shoulder while you raise your arm. Keep your shoulder blade tucked down toward the middle of your back. 4.Hold for seconds. 5.Release the stretch by letting go of the band and lowering your hands. Repeat times. Complete this exercise times a day. Strengthening exercises External rotation 1.Sit in a stable chair without armrests. 2.Secure an exercise band to a stable object at elbow height on your left / right side. 3.Place a soft object, such as a folded towel or a small pillow, between your left / right upper arm and your body to move your elbow about 4 inches (10 cm) away from your side. 4.Hold the end of the exercise band so it is tight and there is no slack. 5.Keeping your elbow pressed against the soft object, slowly move your forearm out, away from your abdomen (external rotation). Keep your body steady so only your forearm moves. 6.Hold for seconds. 7.Slowly return to the starting position. Repeat times. Complete this exercise times a day. Shoulder abduction 1.Sit in a stable chair without armrests, or stand up. 2.Hold a lb / kg weight in your left / right hand, or hold an exercise band with both hands. 3.Start with your arms straight down and your left / right palm facing in, toward your body. 4.Slowly lift your left / right hand out to your side (abduction). Do not lift your hand above shoulder height unless your health care provider tells you that this is safe. Keep your arms straight. Avoid shrugging your shoulder while you do this movement. Keep your shoulder blade tucked down toward the middle of your back. 5.Hold for seconds. 6.Slowly lower your arm, and return to the starting position. Repeat times. Complete this exercise times a day. Shoulder extension 1.Sit in a stable chair without armrests, or stand up. 2.Secure an exercise band to a stable object in front of you so it is at shoulder height. 3.Hold one end of the exercise band in each hand. 4.Straighten your elbows and lift your hands up to shoulder height. 5.Squeeze your shoulder blades together as you pull your hands down to the sides of your thighs (extension). Stop when your hands are straight down by your sides. Do not let your hands go behind your body. 6.Hold for seconds. 7.Slowly return to the starting position. Repeat times. Complete this exercise times a day. Shoulder row 1.Sit in a stable chair without armrests, or stand up. 2.Secure an exercise band to a stable object in front of you so it is at chest height. 3.Hold one end of the exercise band in each hand. Position your palms so that your thumbs are facing the ceiling (neutral position). 4.Bend each of your elbows to a 90-degree angle (right angle) and keep your upper arms at your sides. 5.Step back or move the chair back until the band is tight and there is no slack. 6.Slowly pull your elbows back behind you. 7.Hold for seconds. 8.Slowly return to the starting position. Repeat times. Complete this exercise times a day. Shoulder press-ups 1.Sit in a stable chair that has armrests. Sit upright, with your feet flat on the floor. 2.Put your hands on the armrests so your elbows are bent and your fingers are pointing forward. Your hands should be about even with the sides of your body. 3.Push down on the armrests and use your arms to lift yourself off the chair. Straighten your elbows and lift yourself up as much as you comfortably can. Move your shoulder blades down, and avoid letting your shoulders move up toward your ears. Keep your feet on the ground. As you get stronger, your feet should support less of your body weight as you lift yourself up. 4.Hold for seconds. 5.Slowly lower yourself back into the chair. Repeat times. Complete this exercise times a day. Wall push-ups 1.Stand so you are facing a stable wall. Your feet should be about one arm-length away from the wall. 2.Lean forward and place your palms on the wall at shoulder height. 3.Keep your feet flat on the floor as you bend your elbows and lean forward toward the wall. 4.Hold for seconds. 5.Straighten your elbows to push yourself back to the starting position. Repeat times. Complete this exercise times a day. This information is not intended to replace advice given to you by your health care provider. Make sure you discuss any questions you have with your health care provider. Document Revised: 11/20/2022 Document Reviewed: 11/20/2022 [employer] Patient Education 2022 [employer] 01/14/2024 11:49:43 Shoulder Range of Motion Exercises Shoulder Range of Motion Exercises Shoulder range of motion (ROM) exercises are done to keep the shoulder moving freely or to increase movement. They are recommended for people who have shoulder pain or stiffness or who are recovering from a shoulder surgery. Ask your health care provider which exercises are safe for you. Do exercises exactly as told by your health care provider and adjust them as directed. It is normal to feel mild stretching, pulling, tightness, or discomfort as you do these exercises. Stop right away if you feel sudden pain or your pain gets worse. Do not begin these exercises until told by your health care provider. Phase 1 exercise When you are able, do this exercise 1 2 times a day for 30 60 seconds in each direction, or as directed by your health care provider. Pendulum exercise To do this exercise while sittin.Sit in a chair or at the edge of your bed with your feet flat on the floor. 2.Let your affected arm hang down in front of you over the edge of the bed or chair. 3.Relax your shoulder, arm, and hand. 4.Rock your body so your arm gently swings in small circles. You can also use your unaffected arm to start the motion. 5.Repeat, changing the direction of the circles, swinging your arm left and right, and swinging your arm forward and back. To do this exercise while standin.Stand next to a sturdy chair or table, and hold on to it with your hand on your unaffected side. 2.Bend forward at the waist. 3.Bend your knees slightly. 4.Relax your shoulder, arm, and hand. 5.While keeping your shoulder relaxed, use body motion to swing your arm in small circles. 6.Repeat, changing the direction of the circles, swinging your arm left and right, and swinging your arm forward and back. 7.Between exercises, stand up tall and take a short break to relax your lower back. Phase 2 exercises Do these exercises 1 2 times a day or as told by your health care provider. Hold each stretch for 30 seconds, and repeat 3 times. Do the exercises with one or both arms as instructed by your health care provider. For these exercises, sit at a table with your hand and arm supported by the table. A chair that slides easily or has wheels can be helpful. External rotation 1.Turn your chair so that your affected side is nearest to the table. 2.Place your forearm on the table to your side. Bend your arm to about a 90-degree angle (right angle) at the elbow, and place your hand palm-down on the table. Your elbow should be about 6 inches (15 cm) away from your side. 3.Keeping your arm on the table, lean your body forward. Abduction 1.Turn your chair so that your affected side is nearest to the table. 2.Place your forearm and hand on the table so that your thumb points toward the ceiling and your arm is straight out to your side. 3.Slide your hand out to the side and away from you. 4.To increase the stretch, you can slide your chair away from the table. Flexion: forward stretch 1.Sit facing the table. Place your hand and elbow on the table in front of you. 2.Slide your hand forward and away from you, using your unaffected arm to do the work. 3.To increase the stretch, you can slide your chair backward. Phase 3 exercises Do these exercises 1 2 times a day or as told by your health care provider. Hold each stretch for 30 seconds, and repeat 3 times. Do the exercises with one or both arms as instructed by your health care provider. You will need a cane, a piece of PVC pipe, or a sturdy wooden dowel for the wand exercises. Cross-body stretch: posterior capsule stretch 1.Lift your arm straight out in front of you. 2.Bend your arm in a 90-degree angle (right angle) at the elbow so your forearm moves across your body. 3.Use your other arm to gently pull the elbow across your body, toward your other shoulder. Wall climbs 1.Stand with your affected arm extended out to the side with your hand resting on a door frame. 2.Slide your hand slowly up the door frame. 3.To increase the stretch, step through the door frame. Keep your body upright and do not lean. Flexion To do this exercise while standin.Hold the wand with both of your hands, palms-down. 2.Lift the wand up and over your head, if able. Lift mostly with your affected arm, and use the other arm to help. 3.Push upward with your other arm to gently increase the stretch. To do this exercise while lying down: 1.Lie on your back with your elbows resting on the floor and the wand in both your hands. Your hands will be palm-down, or pointing toward your feet. 2.Lift your hands toward the ceiling, using your unaffected arm to help if needed. 3.Bring your arms overhead as able, using your unaffected arm to help if needed. Internal rotation 1.Stand while holding the wand behind you with both hands. Your unaffected arm should be extended above your head with the arm of the affected side extended behind you at the level of your waist. The wand should be pointing straight up and down as you hold it. 2.Slowly pull the wand up behind your back by straightening the elbow of your unaffected arm and bending the elbow of your affected arm. External rotation 1.Lie on your back with your affected upper arm supported on a small pillow or rolled towel. When you first do this exercise, keep your upper arm close to your body. Over time, bring your arm up to a 90-degree angle (right angle) out to the side. 2.Hold the wand across your stomach and with both hands palm-up. Your elbow on your affected side should be bent at a 90-degree angle. 3.Use your unaffected side to help push your forearm away from you and toward the floor. Keep your elbow on your affected side bent at a 90-degree angle. This information is not intended to replace advice given to you by your health care provider. Make sure you discuss any questions you have with your health care provider. Document Revised: 11/20/2022 Document Reviewed: 11/20/2022 [employer] Patient Education 2022 [employer]. Follow Up Care 01/13/2024 11:59:19 With:JOSE MELGAR FAAFP, Dov Reeder, EMILY, PED Address: [place] [address]- When:Within 6 Month(s) [facility] Hospital Discharge instructions 10-28-2023 Note Date & Type Note Facility 10-28-2023 Hospital Discharg e instructions Patient Education 10/28/2023 09:19:18 Cough, Adult, Dgiv-zm-Izzl Cough, Adult A cough helps to clear your throat and lungs. A cough may be a sign of an illness or another medical condition. An acute cough may only last 2 3 weeks, while a chronic cough may last 8 or more weeks. Many things can cause a cough. They include: Germs (viruses or bacteria) that attack the airway. Breathing in things that bother (irritate) your lungs. Allergies. Asthma. Mucus that runs down the back of your throat (postnasal drip). Smoking. Acid backing up from the stomach into the tube that moves food from the mouth to the stomach (gastroesophageal reflux). Some medicines. Lung problems. Other medical conditions, such as heart failure or a blood clot in the lung (pulmonary embolism). Follow these instructions at home: Medicines Take afpl-gey-fhmtrqe and prescription medicines only as told by your doctor. Talk with your doctor before you take medicines that stop a cough (cough suppressants). Lifestyle Do not smoke, and try not to be around smoke. Do not use any products that contain nicotine or tobacco, such as cigarettes, e-cigarettes, and chewing tobacco. If you need help quitting, ask your doctor. Drink enough fluid to keep your pee (urine) pale yellow. Avoid caffeine. Do not drink alcohol if your doctor tells you not to drink. General instructions Watch for any changes in your cough. Tell your doctor about them. Always cover your mouth when you cough. Stay away from things that make you cough, such as perfume, candles, campfire smoke, or cleaning products. If the air is dry, use a cool mist vaporizer or humidifier in your home. If your cough is worse at night, try using extra pillows to raise your head up higher while you sleep. Rest as needed. Keep all follow-up visits as told by your doctor. This is important. Contact a doctor if: You have new symptoms. You cough up pus. Your cough does not get better after 2 3 weeks, or your cough gets worse. Cough medicine does not help your cough and you are not sleeping well. You have pain that gets worse or pain that is not helped with medicine. You have a fever. You are losing weight and you do not know why. You have night sweats. Get help right away if: You cough up blood. You have trouble breathing. Your heartbeat is very fast. These symptoms may be an emergency. Do not wait to see if the symptoms will go away. Get medical help right away. Call your local emergency services (911 in the [place] Do not drive yourself to the hospital. Summary A cough helps to clear your throat and lungs. Many things can cause a cough. Take qzha-utz-cdvtzsn and prescription medicines only as told by your doctor. Always cover your mouth when you cough. Contact a doctor if you have new symptoms or you have a cough that does not get better or gets worse. This information is not intended to replace advice given to you by your health care provider. Make sure you discuss any questions you have with your health care provider. Document Revised: 11/18/2020 Document Reviewed: 10/19/2019 [employer] Patient Education 2022 [employer]. Follow Up Care 10/24/2023 14:41:22 With:JOSE MELGAR FAAFP, EMILY Colon, PED Address: [address] [place] [address] [place] [address]- When:Within 1 Year(s) [facility] Hospital Discharge instructions 07-12-2022 Note Date & Type Note Facility 07-12-2022 Hospital Discharg e instructions Patient Education 07/12/2022 14:28:53 Health Maintenance, Male Health Maintenance, Male Adopting a healthy lifestyle and getting preventive care are important in promoting health and wellness. Ask your health care provider about: The right schedule for you to have regular tests and exams. Things you can do on your own to prevent diseases and keep yourself healthy. What should I know about diet, weight, and exercise? Eat a healthy diet Eat a diet that includes plenty of vegetables, fruits, low-fat dairy products, and lean protein. Do not eat a lot of foods that are high in solid fats, added sugars, or sodium. Maintain a healthy weight Body mass index (BMI) is a measurement that can be used to identify possible weight problems. It estimates body fat based on height and weight. Your health care provider can help determine your BMI and help you achieve or maintain a healthy weight. Get regular exercise Get regular exercise. This is one of the most important things you can do for your health. Most adults should: Exercise for at least 150 minutes each week. The exercise should increase your heart rate and make you sweat (moderate-intensity exercise). Do strengthening exercises at least twice a week. This is in addition to the moderate-intensity exercise. Spend less time sitting. Even light physical activity can be beneficial. Watch cholesterol and blood lipids Have your blood tested for lipids and cholesterol at 20 years of age, then have this test every 5 years. You may need to have your cholesterol levels checked more often if: Your lipid or cholesterol levels are high. You are older than 40 years of age. You are at high risk for heart disease. What should I know about cancer screening? Many types of cancers can be detected early and may often be prevented. Depending on your health history and family history, you may need to have cancer screening at various ages. This may include screening for: Colorectal cancer. Prostate cancer. Skin cancer. Lung cancer. What should I know about heart disease, diabetes, and high blood pressure? Blood pressure and heart disease High blood pressure causes heart disease and increases the risk of stroke. This is more likely to develop in people who have high blood pressure readings, are of descent, or are overweight. Talk with your health care provider about your target blood pressure readings. Have your blood pressure checked: ?Every 3 5 years if you are 18 39 years of age. ?Every year if you are 40 years old or older. If you are between the ages of 65 and 75 and are a current or former smoker, ask your health care provider if you should have a one-time screening for abdominal aortic aneurysm (AAA). Diabetes Have regular diabetes screenings. This checks your fasting blood sugar level. Have the screening done: Once every three years after age 45 if you are at a normal weight and have a low risk for diabetes. More often and at a younger age if you are overweight or have a high risk for diabetes. What should I know about preventing infection? Hepatitis B If you have a higher risk for hepatitis B, you should be screened for this virus. Talk with your health care provider to find out if you are at risk for hepatitis B infection. Hepatitis C Blood testing is recommended for: Everyone born from 1945 through 1965. Anyone with known risk factors for hepatitis C. Sexually transmitted infections (STIs) You should be screened each year for STIs, including gonorrhea and chlamydia, if: ?You are sexually active and are younger than 24 years of age. ?You are older than 24 years of age and your health care provider tells you that you are at risk for this type of infection. ?Your sexual activity has changed since you were last screened, and you are at increased risk for chlamydia or gonorrhea. Ask your health care provider if you are at risk. Ask your health care provider about whether you are at high risk for HIV. Your health care provider may recommend a prescription medicine to help prevent HIV infection. If you choose to take medicine to prevent HIV, you should first get tested for HIV. You should then be tested every 3 months for as long as you are taking the medicine. Follow these instructions at home: Lifestyle Do not use any products that contain nicotine or tobacco, such as cigarettes, e-cigarettes, and chewing tobacco. If you need help quitting, ask your health care provider. Do not use street drugs. Do not share needles. Ask your health care provider for help if you need support or information about quitting drugs. Alcohol use Do not drink alcohol if your health care provider tells you not to drink. If you drink alcohol: ?Limit how much you have to 0 2 drinks a day. ?Be aware of how much alcohol is in your drink. In the [place] one drink equals one 12 oz bottle of beer (355 mL), one 5 oz glass of wine (148 mL), or one 1 oz glass of hard liquor (44 mL). General instructions Schedule regular health, dental, and eye exams. Stay current with your vaccines. Tell your health care provider if: ?You often feel depressed. ?You have ever been abused or do not feel safe at home. Summary Adopting a healthy lifestyle and getting preventive care are important in promoting health and wellness. Follow your health care provider's instructions about healthy diet, exercising, and getting tested or screened for diseases. Follow your health care provider's instructions on monitoring your cholesterol and blood pressure. This information is not intended to replace advice given to you by your health care provider. Make sure you discuss any questions you have with your health care provider. Document Released: 03/28/2009 Document Revised: 09/23/2019 Document Reviewed: 09/23/2019 [employer] Patient Education 2020 [employer] Follow Up Care 07/12/2022 09:28:41 With:JOSE MELGAR FAAFP, EMILY Colon, PED Address: [address] [place] [address]- When:Within 1 Year(s) [facility] Evaluation + Plan note 07-12-2022 Laboratory Note Date & Type Note Facility 07-12-2022 Evaluation + Plan note Future Scheduled TestsBasic Metabolic Panel 07/12/22CBC w/ Auto Diff 07/12/22Ferritin 07/12/22Hepatic Function Panel 07/12/22Lipid Panel 07/12/22 [facility] Hospital course Narrative Note Date & Type Note Facility Hospital course Narrative No data available for this section [facility] Progress note Note Date & Type Note Facility Progress note No data available for this section [facility] Reason for referral (narrative) Note Date & Type Note Facility Reason for referral (narrative) , NI please [facility] Referred by: Dov GARCIA DO, FAAFP [facility] Summary Purpose Family History No Family History Records FoundNo Family History Records Found No data available for this section No data available for this section No Family History Records Found Advance Directives No Advanced Directives Records FoundNo Advanced Directives Records FoundNo Advanced Directives Records Found Additional Source Comments (unrecognized sect ion and content) No Status Records FoundNo Status Records FoundNo Status Records Found INFORMATION SOURCE (unrecogn ized section and content) DATE CREATED AUTHOR 08/14/2018 [facility] DATE CREATED AUTHOR AUTHOR'S ORGANIZ ATION 10/23/2021 [facility] DATE CREATED AUTHOR AUTHOR'S ORGANIZ ATION 06/20/2024 [facility] Care Team (unrecognized sect ion and content) Personnel Name: Dov GARCIA DO, FAAFP Address: [address] [place] [address] Personnel Name: Dov GARCIA DO, FAAFP Address: Address: [address] [place] [address] Personnel Name: Dov GARCIA DO, FAAFP Address: Address: [address] [place] [address], [place] [address]- US FOR RECORDS PERTAINING TO PATIENTS WHO ARE OR HAVE BEEN ENROLLED IN A CHEMICAL DEPENDENCY/SUBSTANCEABUSE PROGRAM, SOME INFORMATION MAY BE OMITTED. This clinical summary was aggregated from multiple sources. Caution should be exercised in using it in the provision of clinical care. This summary normalizes information from multiple sources, and as a consequence, information in this document may materially change the coding, format and clinical context of patient data. In addition, data may be omitted in some cases. CLINICAL DECISIONS SHOULD BE BASED ON THE PRIMARY CLINICAL RECORDS. [facility]. provides no warranty or guarantee of the accuracy or completeness of information in this document.
--- NOTE | 2024-12-05 13:38 | ED_ITS ---
HPI HPI - General Adult General Chief complaint: Upper Respiratory Infection Stated complaint: FEVER Time Seen by Provider: 12/05/24 13:18 Source: patient Mode of arrival: walk-in Limitations: no limitations History of Present Illness HPI narrative: cc - fever and flu-like symptoms Pt woke this morning with achiness, fatigue and pain in both ears and in his throat. He has some congestion and a cough. He said that he checked his temperature with an ear probe and it registered 106F - but he is afebrile in our ED. No meds taken at home for this. had mild URI symptoms last week. Their child has similar symptoms including temp 104F this morning. Related Data Home Medications ?Medication ?Instructions ?Recorded ?Confirmed omeprazole 40 mg capsule,delayed 40 mg PO .acb 06/17/24 12/05/24 release Previous Rx's ?Medication ?Instructions ?Recorded eogcpcxksycqleh-xzaythxxdvluvev-WP 10 ml PO Q6H PRN cold symptoms 12/05/24 2 mg-30 mg-10 mg/5 mL oral syrup #118 mL (Bromfed DM) Allergies Allergy/AdvReac Type Severity Reaction Status Date / Time No Known Drug Allergies Allergy Verified 12/05/24 13:09 Opioid HPI Opioid Management Most Recent Opioid Data: Last Pain Scale 0 06/18/24 11:39 06/18/24 Last ORT Total Score 1 06/17/24 13:09 06/17/24 Last ORT Risk Category Low Risk 06/17/24 13:09 06/17/24 [facility] PFS Medical History (Updated 12/05/24 @ 13:42 by Alfredo Alexander) Cellulitis ?L03.90 - Cellulitis, unspecified (ICD-10) Social History Highest level of school completed/degree received: high school graduate Little interest or pleasure in doing things: not at all Feeling down, depressed, or hopeless: not at all Exam Narrative Exam Narrative: Nurses notes and vital signs reviewed and patient is not hypoxic. afebrile General: Well-appearing and in no apparent distress. Skin: Warm, dry, no pallor noted. No rash. Head: Normocephalic, atraumatic. Neck: Supple, non-tender. No cervical lymphadenopathy or meningismus. Eye: Pupils are equal, round and EOMI. No scleral icterus. Ears, Nose, Mouth, and Throat: TM are clear, mild posterior oropharynx erythema, mild nasal mucosal hypertrophy, uvula is mid-line. Oral mucosa is moist Cardiovascular: Tachycardia. Respiratory: No accessory muscle use or respiratory distress. Lungs are clear to auscultation, no wheezing, rales or rhonchi GI: Abdomen is soft, non-distended. Normal bowel sounds. No tenderness to palpation. No rebound, guarding, or rigidity noted. Neurological: A&O x4. No cranial nerve dysfunction observed. No truncal ataxia. Moves all extremities. Sensation intact. Psychiatric: Cooperative and interactive. Normal mood and affect. Constitutional Vital Signs, click to edit/add: Last Vital Signs Temp 98.8 F 12/05/24 13:10 Pulse 103 H 12/05/24 13:10 Resp 20 12/05/24 13:10 BP 158/100 H 12/05/24 13:10 Pulse Ox 96 12/05/24 13:10 O2 Del Method Room Air 12/05/24 13:10 Course Vital Signs Vital signs: Vital Signs Temperature 98.8 F 12/05/24 13:10 Pulse Rate 103 H 12/05/24 13:10 Respiratory Rate 20 12/05/24 13:10 Blood Pressure 158/100 H 12/05/24 13:10 Pulse Oximetry 96 12/05/24 13:10 Oxygen Delivery Method Room Air 12/05/24 13:10 Temperature 98.8 F 12/05/24 13:10 Pulse Rate 103 H 12/05/24 13:10 Respiratory Rate 20 12/05/24 13:10 Blood Pressure 158/100 H 12/05/24 13:10 Pulse Oximetry 96 12/05/24 13:10 Oxygen Delivery Method Room Air 12/05/24 13:10 Medical Decision Making MDM Narrative Medical decision making narrative: swabs for influenza and covid - both negative. Pt presents with flu-like illness with symptoms of achiness, fatigue, subjective fever, cough and congestion with sore throat and some ear pain. No sign of acute bacterial infection noted. He was discharged home and prescribed bromfed syrup for his cough - instructed to take tylenol and motrin for his fever and achiness. Work excuse given. Lab Data Lab results reviewed: Yes I reviewed the patient's lab results Labs: Lab Results 12/05/24 Range/Units 13:04 Influenza Type A Ag Negative Influenza Type B Ag Negative SARS-CoV-2 Ag (CV2AG) Negative (NEGATIVE) Discharge Plan Discharge Chief Complaint: Upper Respiratory Infection Clinical Impression: Acute viral syndrome Patient Disposition: Home, Self-Care Time of Disposition Decision: 14:25 Prescriptions / Home Meds: New xsphqgohsgnjcop-vmygipiwb-UF [Bromfed DM] 2-30-10 mg/5 mL syrup 10 ml PO Q6H PRN (Reason: cold symptoms) Qty: 118 0RF No Action omeprazole 40 mg capsule,delayed release(DR/EC) 40 mg PO .acb Print Language: Slovak Instructions: Viral Syndrome (ED) Referrals: SERG GARCIA [Primary Care Provider] - 1 week
[2024-12-05 14:05] LABS: Influenza Virus A Antigen Negative; Influenza Virus B Antigen Negative; Internal Control Within Normal Limits; SARS-CoV-2 Ag NEGATIVE (NEGATIVE)
== END 2024-12-05 14:31 | disposition home or self-care (01) ==
PROVIDERS: Emergency Provider Emergency Medicine; Family Provider Family Medicine; PCP Family Medicine
DX: B34.9 Viral infection, unspecified (principal); R53.83 Other fatigue; J02.8 Acute pharyngitis due to other specified organisms
CPT/HCPCS: 87804; 87811; 99283